=== PATIENT | male | born 1955 | race Caucasian/White ===

== ENCOUNTER → 2020-06-13 02:47 | Outpatient (CLI) | payer OTHER, SELFPAY ==
[2020-06-13 19:42] LABS: SARS-CoV-2 RNA PCR Negative
== END ==
PROVIDERS: PCP Internal Medicine; Visit Provider Internal Medicine Cardiovascular Disease
DX: Z01.812 Encounter for preprocedural laboratory examination (principal); Z20.822 Contact with and (suspected) exposure to COVID-19
CPT/HCPCS: C9803; U0003; U0005

== ENCOUNTER 2020-06-16 02:01 | Day surgery (SDC) | payer OTHER, SELFPAY ==
[2020-06-15 11:37] VITALS: BMI 44.2
[2020-06-16] VITALS (7 sets, daily range): BP systolic 113–136; BP diastolic 75–87; PULSE 72–104; RESP 18–35; TEMP 36.4–36.8; O2SAT 93–98; BMI 45.0
--- NOTE | 2020-06-16 10:00 | ECG_ITS ---
Measurements Intervals [place] Rate: 103 P: [place]: 0 QRS: 3 QRSD: 117 T: 72 QT: 370 QTc: 486 Interpretive Statements ATRIAL FLUTTER/TACHYCARDIA WITH RAPID VENTRICULAR RESPONSE VENTRICULAR PREMATURE COMPLEX INTRAVENTRICULAR CONDUCTION DELAY DELAYED PRECORDIAL R/S TRANSITION BORDERLINE ST-T WAVE ABNORMALITY- HIGH LATERAL LEADS ABNORMAL ECG Electronically Signed On 06-16-2020 10:37:25 RECONSTRUCTIVE DENTIST by Ramin Stanton D.O.
--- NOTE | 2020-06-16 10:42 | WPDHPUPDATE1 ---
History and Physical Update Update Date/Time: 06/16/20 10:42 Patient with recent onset of atrial flutter, persistent, and some MARTE. He has been started on amiodarone but the atrial flutter persists and he is here for elective electrical cardioversion with the assistance of anesthesia. He has history of a dilated cardiomyopathy, sustained ventricular tachycardia requiring ICD implant several years ago with some recent ventricular tachycardia treated with anti tachy pacing. He has been anticoagulated with Xarelto for at least 6 weeks and has not missed any doses. History and Physical has been reviewed, including an updated exam of the patient. There are NO changes in the patient's condition. Risks, benefits, and alternatives have been discussed and questions answered. Patient agrees to proceed with procedure.
--- NOTE | 2020-06-16 10:45 | WPDMODSED ---
Moderate Sedation Note-Pt Data Patient Data Diagnosis: Persistent atrial flutter Present Complaint: History of cardiomyopathy, ventricular tachycardia, ICD who developed persistent atrial flutter/fib noted in April. On anticoagulation and here for elective electrical cardioversion. Procedure to be performed/Plan: Elective electrical cardioversion with the assistance of anesthesia. Allergies Allergy/AdvReac Type Severity Reaction Status Date / Time No Known Allergies Allergy Verified 06/15/20 11:26 Home Medications Medication Instructions Recorded Confirmed Type allopurinol 300 mg PO DAILY 06/15/20 06/15/20 History amiodarone 200 mg PO BID 06/15/20 06/16/20 History amlodipine 10 mg PO DAILY 06/15/20 06/15/20 History aspirin 81 mg PO DAILY 06/15/20 06/15/20 History atorvastatin 40 mg PO DAILY 06/15/20 06/15/20 History carvedilol 50 mg PO BID 06/15/20 06/16/20 History cetirizine [Zyrtec] 10 mg PO DAILY 06/15/20 06/15/20 History crisaborole [Eucrisa] 1 applic TOPICAL BID 06/15/20 06/15/20 History dulaglutide [Trulicity] 1.5 mg SUBCUT WEEKLY 06/15/20 06/15/20 History empagliflozin [Jardiance] 10 mg PO DAILY 06/15/20 06/15/20 History fluticasone propionate 50 mcg INTRANASAL BID 06/15/20 06/15/20 History lecithin 1,200 mg PO DAILY 06/15/20 06/15/20 History losartan-hydrochlorothiazide 1 tablet PO DAILY 06/15/20 06/15/20 History metformin 1,000 mg PO DAILY 06/15/20 06/15/20 History methimazole 5 mg PO DAILY 06/15/20 06/15/20 History omega-3 fatty acids [[place] 3] 1,000 mg PO DAILY 06/15/20 06/15/20 History rivaroxaban [Xarelto] 20 mg PO DAILY 06/15/20 06/15/20 History vitamin B complex 1 cap PO DAILY 06/15/20 06/15/20 History vitamin E 400 unit PO DAILY 06/15/20 06/15/20 History Current Medications: Active Medications Sodium Chloride (Normal Saline Iv) 1,000 mls @ 30 mls/hr IV CONT .Q24H [facility] Sedation/Anesthesia: No previous sedation/anesthesia problems (including family history). [facility] Past Medical History Medical History (Updated 06/16/20 @ 10:48 by Megan Armas MD) Atrial flutter Diabetes Dilated cardiomyopathy Hyperlipidemia associated with type 2 diabetes mellitus Hypertension ICD (implantable cardioverter-defibrillator) battery depletion Biotronik ICD [place] [address] Forrester for sustained ventricular tachycardia. Kidney stone Morbid obesity Sleep apnea Ventricular tachycardia Surgical History Surgical History (Updated 06/16/20 @ 10:48 by Megan Armas MD) H/O shoulder surgery Family History Family History (Updated 06/16/20 @ 10:49 by Megan Armas MD) Father Heart disease heart attack, age 63 Mother Heart disease Cerebrovascular accident Social History Social History Smoking status: Never smoker Alcohol intake: current Drinks per week: 4 Alcohol use details: social wine drinker Substance use: never Living arrangements: with family Mod Sed Physical Exam Physical Exam Pre Procedural Exam: Normal: Appearance, Eyes, Ears, Nose, Neck, Throat, Airway, Lungs, Heart Size, Neuro Exam, Abdomen (Obese), Breasts, Extremities (Trace edema) and Skin and Variation: Heart Rate (Mildly tachycardic) and Heart Rhythm Hours since solid foods: 12 Hours since liquid intake: 12 Internal Medicine - PN: Obj Da Vital Signs Vital Signs: Vital Signs - 24 hr 06/16/20 10:35 Temperature 97.5 F L Pulse Rate 104 H Respiratory Rate 18 Blood Pressure 131/87 Pulse Oximetry 98 Meds/Results Medications: Active Medications Generic Name Dose Route Start Last Admin Trade Name Freq PRN Reason Stop Dose Admin Sodium Chloride 1,000 mls @ 30 mls/hr 06/16/20 10:00 Normal Saline Iv IV CONT .Q24H [facility] EKG shows atrial flutter rate 103, PVCs Labs CBC & Chem 7: 06/16/20 10:27 ASA Classification/Sedation ASA Classification/Sedation ASA Class: III Risks: Risks, benefits and alternatives explained and patient/family accepted p
[2020-06-16 10:57] LABS: Anion Gap 10 mmol/L (8-16); Blood Urea Nitrogen 29 mg/dL (9-20); Calcium 9.3 mg/dL (8.4-10.2); Carbon Dioxide 28 mmol/L (22-30); Chloride 104 mmol/L (98-107); Estimated CRCL calculation 73 ml/min; Estimated Glomerular Filt Rate 56; Glucose 168 mg/dL (75-110); Magnesium 1.6 mg/dL (1.6-2.3); Sodium 142 mmol/L (137-145)
--- NOTE | 2020-06-16 11:14 | WPDANESEPPF ---
Anes - Initial Pre Proc Eval Procedure: Operation Date: 06/16/20 11:30 Proposed Procedures p Electrical Cardioversion - Megan Armas MD Date/Time: 06/16/20 11:14 Surgeon: Megan Armas MD Pre Op Diagnosis: A-Fib Patient Data Age: 64 Gender: M Height: 5 ft 10 in Weight: 142.4 kg Last Vital Signs Temp 97.5 F L 06/16/20 10:35 Pulse 104 H 06/16/20 10:35 Resp 18 06/16/20 10:35 BP 131/87 06/16/20 10:35 Pulse Ox 98 06/16/20 10:35 Allergies Allergy/AdvReac Type Severity Reaction Status Date / Time No Known Allergies Allergy Verified 06/15/20 11:26 Home Medications Medication Instructions Recorded Confirmed Type allopurinol 300 mg PO DAILY 06/15/20 06/15/20 History amiodarone 200 mg PO BID 06/15/20 06/16/20 History amlodipine 10 mg PO DAILY 06/15/20 06/15/20 History aspirin 81 mg PO DAILY 06/15/20 06/15/20 History atorvastatin 40 mg PO DAILY 06/15/20 06/15/20 History carvedilol 50 mg PO BID 06/15/20 06/16/20 History cetirizine [Zyrtec] 10 mg PO DAILY 06/15/20 06/15/20 History crisaborole [Eucrisa] 1 applic TOPICAL BID 06/15/20 06/15/20 History dulaglutide [Trulicity] 1.5 mg SUBCUT WEEKLY 06/15/20 06/15/20 History empagliflozin [Jardiance] 10 mg PO DAILY 06/15/20 06/15/20 History fluticasone propionate 50 mcg INTRANASAL BID 06/15/20 06/15/20 History lecithin 1,200 mg PO DAILY 06/15/20 06/15/20 History losartan-hydrochlorothiazide 1 tablet PO DAILY 06/15/20 06/15/20 History metformin 1,000 mg PO DAILY 06/15/20 06/15/20 History methimazole 5 mg PO DAILY 06/15/20 06/15/20 History omega-3 fatty acids [[place] 3] 1,000 mg PO DAILY 06/15/20 06/15/20 History rivaroxaban [Xarelto] 20 mg PO DAILY 06/15/20 06/15/20 History vitamin B complex 1 cap PO DAILY 06/15/20 06/15/20 History vitamin E 400 unit PO DAILY 06/15/20 06/15/20 History Laboratory Tests 06/16/20 10:27 Sodium 142 mmol/L mmol/L (137-145) Potassium 4.0 mmol/L mmol/L (3.4-5.0) Chloride 104 mmol/L mmol/L (98-107) Carbon Dioxide 28 mmol/L mmol/L (22-30) Anion Gap 10 mmol/L mmol/L (8-16) BUN 29 mg/dL H mg/dL (9-20) Creatinine 1.30 mg/dL mg/dL (0.7-1.3) Estim Creat Clear Calc 73 ml/min ml/min Estimated GFR 56 L (59 - ) Glucose 168 mg/dL H mg/dL (75-110) Calcium 9.3 mg/dL mg/dL (8.4-10.2) Magnesium 1.6 mg/dL mg/dL (1.6-2.3) Patient hx anesthesia problems: none Family hx anesthesia problems: none PMFSH Past Medical History Medical History (Updated 06/16/20 @ 10:48 by Megan Armas MD) Atrial flutter Diabetes Dilated cardiomyopathy Hyperlipidemia associated with type 2 diabetes mellitus Hypertension ICD (implantable cardioverter-defibrillator) battery depletion Biotronik ICD [place] [address] Forrester for sustained ventricular tachycardia. Kidney stone Morbid obesity Sleep apnea Ventricular tachycardia Surgical History Surgical History (Updated 06/16/20 @ 10:48 by Megan Armas MD) H/O shoulder surgery Family History Family History (Updated 06/16/20 @ 10:50 by Megan Armas MD) Father Heart disease heart attack, age 63 Mother Heart disease Cerebrovascular accident Social History Social History Smoking status: Never smoker Alcohol intake: current Drinks per week: 4 Alcohol use details: social wine drinker Substance use: never Living arrangements: with family Breana De La Rosa Final PreProcedure Day of Procedure 06/16/20 11:14 Patient weight: morbidly obese Heart: irregular rhythm Lungs: clear to auscultation Airway: Mallampati scale class III Neurological: alert and oriented Last oral intake: >/= 8 hours ASA classification: IV Emergent: no Anesthetic plan: proceed Anesthesia type and monitoring: general GIVS and standard monitoring Informed Consent: The patient's anesthetic plan and its attendant risks and benefits were discussed with the patient/family/POA. Questions we
--- NOTE | 2020-06-16 11:43 | ECG_ITS ---
Measurements Intervals [place] Rate: 75 P: 42 [place]: 171 QRS: 44 QRSD: 118 T: 61 QT: 394 QTc: 440 Interpretive Statements SINUS RHYTHM INTRAVENTRICULAR CONDUCTION DELAY BORDERLINE ECG Electronically Signed On 06-16-2020 12:10:36 QUARTER SEAMER by Ramin Stanton D.O.
--- NOTE | 2020-06-16 11:54 | PM.OP ---
Procedure Note - Brief Procedure Note - Brief Date of procedure: 06/16/20 Pre-op diagnosis: A-Fib Atrial flutter Post-op diagnosis: other Procedure performed: Sedation with anesthesia Elective electrical cardioversion Description of procedure: Status post elective electrical cardioversion with 70 joules of synchronized biphasic energy Surgeon: Megan Armas MD Complications: No immediate complications Findings: Successful electrical cardioversion
--- NOTE | 2020-06-16 11:55 | P.OP_ITS ---
Procedure Note - Detailed Date of procedure: 06/16/20 Pre-op diagnosis: A-Fib Atrial flutter Post-op diagnosis: same Procedure performed: Sedation with anesthesia Elective electrical cardioversion Description of procedure: Sedation: See Anesthesia flow sheet Cardioversion: The ICD was interrogated and confirmed atrial flutter. After informed consent and sedation with assistance of anesthesia, the patient underw ent elective electrical synchronized cardioversion with 70 joules of biphasic energy and converted to normal sinus rhythm. There were no complications. Anesthesia: MAC Surgeon: Megan Armas MD Drains: No Packing: No Complications: No immediate complications Condition: stable Disposition: same day Findings: Continue amiodarone 200 mg daily. Will decide at a later date whether to discontinue this or not. Another option may be atrial flutter ablation if his atrial flutter returns. Follow-up in the office as scheduled
--- NOTE | 2020-06-16 13:25 | SUR.PHASEII ---
Patient given discharge instructions with emphasis on medication regimen, when to notify the docotor, and follow up care. Patient verbalizes understanding. PIV removed. VSS. Patient ambulated to car with staff, where he was picked up by his .
== END 2020-06-16 13:25 | disposition home or self-care (01) ==
PROVIDERS: PCP Internal Medicine; Visit Provider Internal Medicine Cardiovascular Disease
PROC: 5A2204Z Restoration of Cardiac Rhythm, Single (ICD-10-PCS; principal; 2020-06-16 11:30)
DX: I48.19 Other persistent atrial fibrillation (principal); I48.92 Unspecified atrial flutter; I42.0 Dilated cardiomyopathy; I47.2 Ventricular tachycardia; E11.9 Type 2 diabetes mellitus without complications; E78.5 Hyperlipidemia, unspecified; I10 Essential (primary) hypertension; G47.30 Sleep apnea, unspecified; Z95.810 Presence of automatic (implantable) cardiac defibrillator; E66.01 Morbid (severe) obesity due to excess calories; Z68.42 Body mass index [BMI] 45.0-49.9, adult; Z79.84 Long term (current) use of oral hypoglycemic drugs; Z79.82 Long term (current) use of aspirin; Z79.01 Long term (current) use of anticoagulants
CPT/HCPCS: 36415; 80048; 83735; 92960; 93005; C9803; J7040; U0003; U0005

== ENCOUNTER 2020-06-25 11:50 | Emergency (ER) | payer OTHER, SELFPAY ==
[2020-06-25 11:57] VITALS: BP 133/91; PULSE 70; RESP 16; TEMP 36.7; O2SAT 98
--- NOTE | 2020-06-25 12:38 | ED.WOUNDLAC ---
HPI - Wound/Laceration General Chief Complaint: Wound/Laceration Stated Complaint: wound on elbow Time Seen by Provider: 06/25/20 12:35 Source: patient and RN notes reviewed Mode of arrival: ambulatory Limitations: no limitations History of Present Illness HPI narrative: 64-year-old male with history of diabetes presents concern for a wound is not healing. Reports he had an abrasion to his left elbow. Reports the wound has failed to heal. Reports he has been using triple antibiotic ointment and adhesive bandages. Reports the wound bed is red and has yellow drainage. Reports it is mildly tender. He denies any surrounding redness, swelling, pain. Denies any distal redness, swelling, decreased sensation, range of motion. Related Data Home Medications Medication Instructions Recorded Confirmed Eucrisa 1 applic TOPICAL BID 06/15/20 06/15/20 Jardiance 10 mg PO DAILY 06/15/20 06/25/20 Trulicity 1.5 mg SUBCUT WEEKLY 06/15/20 06/25/20 Xarelto 20 mg PO DAILY 06/15/20 06/25/20 allopurinol 300 mg PO DAILY 06/15/20 06/25/20 amlodipine 10 mg PO DAILY 06/15/20 06/25/20 aspirin 81 mg PO DAILY 06/15/20 06/25/20 atorvastatin 40 mg PO DAILY 06/15/20 06/25/20 carvedilol 50 mg PO BID 06/15/20 06/25/20 cetirizine [Zyrtec] 10 mg PO DAILY 06/15/20 06/25/20 fluticasone propionate 50 mcg INTRANASAL BID 06/15/20 06/25/20 lecithin 1,200 mg PO DAILY 06/15/20 06/25/20 losartan-hydrochlorothiazide 1 tablet PO DAILY 06/15/20 06/25/20 metformin 1,000 mg PO DAILY 06/15/20 06/25/20 methimazole 5 mg PO DAILY 06/15/20 06/25/20 omega-3 fatty acids 1,000 mg PO DAILY 06/15/20 06/25/20 vitamin B complex 1 cap PO DAILY 06/15/20 06/25/20 vitamin E 400 unit PO DAILY 06/15/20 06/25/20 Allergies Allergy/AdvReac Type Severity Reaction Status Date / Time No Known Allergies Allergy Verified 06/25/20 11:57 Review of Systems Review of Systems: Narrative: CONSTITUTIONAL: Denies malaise, chills, sweats, or fever. CARDIOVASCULAR: Denies chest pain, palpitations, or edema. RESPIRATORY: Denies cough or dyspnea. SKIN: Reports wound on the left elbow that is nonhealing MUSCULOSKELETAL: Denies musculoskeletal pain or myalgia. All systems reviewed & are unremarkable except as noted in HPI and below PMFSH Past Medical History Medical History (Updated 06/25/20 @ 12:42 by Eloina Angulo NP) Atrial flutter Diabetes Dilated cardiomyopathy Hyperlipidemia associated with type 2 diabetes mellitus Hypertension ICD (implantable cardioverter-defibrillator) battery depletion Biotronik ICD [place] [address] Forrester for sustained ventricular tachycardia. Kidney stone Morbid obesity Sleep apnea Ventricular tachycardia Surgical History Surgical History (Updated 06/16/20 @ 10:48 by Megan Armas MD) H/O shoulder surgery Family History Family History (Updated 06/16/20 @ 10:50 by Megan Armas MD) Father Heart disease heart attack, age 63 Mother Heart disease Cerebrovascular accident Social History Social History Smoking status: Never smoker Alcohol intake: current Drinks per week: 4 Substance use: never Comments At time of signature, agree with nursing past medical, surgical, social and family history. There is no relevant family history pertinent to the presenting complaint Exam Narrative: Exam Narrative: GENERAL: Well-appearing, well-nourished, and in no acute distress. HEAD: Normocephalic, atraumatic. EYES: PERRLA, conjunctivae clear ENT: Mucous membranes moist. NECK: Supple. CHEST: No respiratory distress. Speaks in full sentences. HEART: Regular rate and rhythm. EXTREMITIES: Left upper extremity has grossly normal range of motion, no edema, grossly normal strength and sensation. SKIN: Warm, dry. 6 cm in diameter wound with beefy red tissue bed and serosanguineous drainage noted to the elbow surrounded by red satellite papules. No erythema, induration, edema surrounding the wound, no purulent drainage n
== END 2020-06-25 12:52 | disposition home or self-care (01) ==
PROVIDERS: Emergency Provider Nurse Practitioner; PCP Internal Medicine
DX: L08.9 Local infection of the skin and subcutaneous tissue, unspecified (principal); S51.002A Unspecified open wound of left elbow, initial encounter; X58.XXXA Exposure to other specified factors, initial encounter; I48.92 Unspecified atrial flutter; E11.9 Type 2 diabetes mellitus without complications; I42.0 Dilated cardiomyopathy; E78.5 Hyperlipidemia, unspecified; I10 Essential (primary) hypertension; Z95.810 Presence of automatic (implantable) cardiac defibrillator; G47.30 Sleep apnea, unspecified; E66.01 Morbid (severe) obesity due to excess calories; Z68.41 Body mass index [BMI] 40.0-44.9, adult
CPT/HCPCS: 99213; G0463

== ENCOUNTER 2020-10-21 09:12 | Inpatient (IN) | payer OTHER, MEDICARE, SELFPAY ==
[2020-10-21] VITALS (27 sets, daily range): BP systolic 104–135; BP diastolic 63–93; PULSE 78–181; RESP 14–36; TEMP 36.2–36.9; O2SAT 88–100; BMI 43.2
--- NOTE | ~2020-10-21 | CT_ITS ---
EXAMINATION: CT abdomen pelvis w con EXAM DATE: 10/21/2020 11:19 INDICATION: LLQ pain, hx of kidney stones and diverticulitis. TECHNIQUE: Spiral CT of the abdomen and pelvis was performed following intravenous injection of 100 m L Omnipaque 350. Axial, coronal and sagittal images of the abdomen and pelvis were reviewed. The do se-length product (DLP) for this examination was 1450.68 mGy-cm. The exposure was tailored according to patient size (auto mA exposure control), and iterative reconstruction (ASIR) was used as addition al dose reduction technique. Comparison is made to prior examination from 06/18/2015. FINDINGS: The liver, spleen, adrenal glands and pancreas are unremarkable. Gallbladder is unremarkab le. No biliary obstruction. Portal and splenic veins are patent. Kidneys enhance symmetrically. T here is no hydronephrosis. Right kidney nonobstructing calyceal stone measuring 7 mm. The prostate i s unremarkable. The bladder is unremarkable. There is no retroperitoneal or pelvic lymphadenopathy. There is mild scattered arteriosclerotic disease. There is small right inguinal fat-containing her court. There is extensive sigmoid, moderate descending colonic diverticulosis. There is moderate amount of p erisigmoid inflammation, and small pocket of fluid and gas adjacent to this region without an organiz ed wall, region measuring 2 x 3 cm, small peridiverticular abscess. No gross free intraperitoneal air . There is a fistulous tract between the sigmoid colon and the superior aspect of the bladder, probab ly from prior episode of diverticulitis. This may not be patent, but correlate with urinalysis. There are no findings to suggest appendicitis. The stomach and small bowel are unremarkable. There is expected amount of colonic stool. Cardiac pacemaker/AICD lead. The lung bases are unremarkable. There are no osteoblastic or osteolytic lesions identified. IMPRESSION: 1. Sigmoid diverticulitis with small peridiverticular fluid/gas collection without organized wall, a n early peridiverticular abscess. 2. Evidence of sigmoid-bladder fistula, could be from prior episode diverticulitis. Correlate with u rinalysis to exclude open communication. 3. Nonobstructing right calyceal stone. Reviewed, dictated and finalized at location B. IMPRESSION: 1. Sigmoid diverticulitis with small peridiverticular fluid/gas collection wit hout organized wall, an early peridiverticular abscess. 2. Evidence of sigmoid-bladder fistula, could be from prior episode diverticul itis. Correlate with urinalysis to exclude open communication. 3. Nonobstructing right calyceal stone.
--- NOTE | 2020-10-21 09:51 | ED.ABDPAIN ---
HPI - Abdominal Pain General Chief Complaint: Abdominal Pain Stated Complaint: LLQ abd pain Time Seen by Provider: 10/21/20 09:24 Source: patient Mode of arrival: ambulatory Limitations: no limitations History of Present Illness HPI narrative: Patient is a 65-year-old male who presents complaining of left sided abdominal pain x2 days. He reports pain increasing this am. He reports pain with palpation. He denies nausea, vomiting and diarrhea. He reports urinary frequency and difficulty urinating x 1 day. Patient reports a history of diverticulitis and kidney stones in the past. He denies taking over the counter medications for pain relief prior to arrival. MD elicited complaint: abdominal pain Related Data Home Medications Medication Instructions Recorded Confirmed Eucrisa 1 applic TOPICAL BID 06/15/20 06/15/20 Jardiance 10 mg PO DAILY 06/15/20 06/25/20 Trulicity 1.5 mg SUBCUT WEEKLY 06/15/20 06/25/20 Xarelto 20 mg PO DAILY 06/15/20 06/25/20 allopurinol 300 mg PO DAILY 06/15/20 06/25/20 amlodipine 10 mg PO DAILY 06/15/20 06/25/20 aspirin 81 mg PO DAILY 06/15/20 06/25/20 atorvastatin 40 mg PO DAILY 06/15/20 06/25/20 carvedilol 50 mg PO BID 06/15/20 06/25/20 cetirizine [Zyrtec] 10 mg PO DAILY 06/15/20 06/25/20 fluticasone propionate 50 mcg INTRANASAL BID 06/15/20 06/25/20 lecithin 1,200 mg PO DAILY 06/15/20 06/25/20 losartan-hydrochlorothiazide 1 tablet PO DAILY 06/15/20 06/25/20 metformin 1,000 mg PO BID 06/15/20 06/25/20 methimazole 5 mg PO EVERY OTHER DAY 06/15/20 06/25/20 omega-3 fatty acids 1,000 mg PO DAILY 06/15/20 06/25/20 vitamin B complex 1 cap PO DAILY 06/15/20 06/25/20 vitamin E 400 unit PO DAILY 06/15/20 06/25/20 Allergies Allergy/AdvReac Type Severity Reaction Status Date / Time No Known Allergies Allergy Verified 10/21/20 09:20 Review of Systems Review of Systems: Narrative: CONSTITUTIONAL: Denies fever, chills, or sweats. EYES: Denies visual changes, redness, or discharge. ENT: Denies rhinorrhea, congestion, sore throat, or otalgia. CARDIOVASCULAR: Denies chest pain, palpitations, or edema. RESPIRATORY: Denies cough or dyspnea. GASTROINTESTINAL: Reports left-sided abdominal pain, denies nausea, vomiting, or diarrhea. GENITOURINARY: Reports urinary frequency and difficulty with urination. SKIN: Denies rash or itching. MUSCULOSKELETAL: Denies back pain, joint pain, or myalgia. NEUROLOGIC: Denies headache, numbness, dizziness, or weakness. PSYCHIATRIC: Denies anxiety or depression. [facility] Past Medical History Medical History (Updated 06/26/20 @ 00:00 by [facility]) Atrial flutter Diabetes Dilated cardiomyopathy Hyperlipidemia associated with type 2 diabetes mellitus Hypertension ICD (implantable cardioverter-defibrillator) battery depletion Biotronik ICD [place] [address] Forrester for sustained ventricular tachycardia. Kidney stone Morbid obesity Sleep apnea Ventricular tachycardia Surgical History Surgical History (Updated 06/16/20 @ 10:48 by Megan Armas MD) H/O shoulder surgery Family History Family History (Updated 06/16/20 @ 10:50 by Megan Armas MD) Father Heart disease heart attack, age 63 Mother Heart disease Cerebrovascular accident Social History Social History Smoking status: Never smoker Alcohol intake: current Drinks per week: 4 Alcohol use details: social wine drinker Substance use: never Exam Narrative: Exam Narrative: GENERAL: Well-appearing, well-nourished, and in no acute distress. HEAD: Normocephalic, atraumatic. EYES: EOMI. No redness or drainage. Conjunctiva are normal. ENT: Mucous membranes pink and moist. CHEST: No respiratory distress. Clear to auscultation. HEART: Regular rate and rhythm. No murmur appreciated. Normal peripheral pulses. GI: Left-sided tenderness with palpation, no rebound or guarding. No distention. Bowel sounds normal in all quadrants. MUSCULOSKELETAL: No bony tende
[2020-10-21 10:08] LABS: Basophils Percent Auto 0.2 % (0.2-1.2); Eosinophils Percent Auto 0.3 % (0-4.4); Hematocrit 44.5 % (42.0-52.0); Immature Granulocyte Absolute 0.04 K/mm3 (0.00-0.031); Immature Granulocyte Percent A 0.4 % (0-0.5); Lymphocytes Absolute Auto 1.09 K/mm3 (0.9-3.2); Lymphocytes Percent Auto 9.9 % (18.3-44.2); Mean Corpuscular HGB Conc 33.7 g/dl (32-36); Mean Corpuscular Hemoglobin 32.8 pg (26-34); Mean Corpuscular Volume 97.4 fl (80-100); Mean Platelet Volume 10.3 fl (7.4-10.4); Monocytes Percent Auto 8.9 % (2.6-8.5); Neutrophils Absolute Auto 8.9 K/mm3 (1.3-6.7); Neutrophils Percent Auto 80.3 % (45.5-73.1); Platelet Count Result 160 k/mm3 (150-375); Red Blood Count 4.57 M/mm3 (4.6-6.20)
[2020-10-21 10:12] LABS: Add Urine Microscopic? YES; Appearance Urine Clear (Clear); Bilirubin Urine Negative (Negative); Blood Urine 1+ (Negative); Color Urine Yellow (Yellow); Glucose Urine UA 3+ mg/dL (Negative); Ketones Urine Negative (Negative); Leukocyte Esterase Ur Negative LEU/UL (Negative); Mucus Urine Rare /lpf; Nitrate Urine Negative (Negative); Protein Urine 2+ mg/dL (Negative); RBC Urine 0-2 /hpf (0-2); Specific Grav Ur 1.025 (1.001-1.035); Squamous Epithelial Cell Urine Rare /hpf (Few); Urobilinogen Urine Negative mg/dL (<2.0); WBC Urine 0-3 /hpf
[2020-10-21 10:24] LABS: Alanine Aminotransferase 43 U/L (4-50); Albumin Level 4.6 g/dL (3.5-5.1); Alkaline Phosphatase 61 U/L (38-126); Anion Gap 10 mmol/L (8-16); Aspartate Amino Transferase 42 U/L (17-59); Bilirubin,Total 2.7 mg/dL (0.2-1.3); Blood Urea Nitrogen 24 mg/dL (9-20); Calcium 9.4 mg/dL (8.4-10.2); Carbon Dioxide 25 mmol/L (22-30); Chloride 105 mmol/L (98-107); Estimated CRCL calculation 71 ml/min; Estimated Glomerular Filt Rate 55; Glucose 160 mg/dL (75-110); Lipase 363 U/L (23-300); Potassium 3.7 mmol/L (3.4-5.0); Sodium 140 mmol/L (137-145)
[2020-10-21 10:35] LABS: Troponin I 0.013 ng/mL (0.000-0.034)
--- NOTE | 2020-10-21 14:04 | PM.CNGS ---
Assessment and Plan Assessment and plan (1) Acute diverticulitis: Code(s): K57.92 - Diverticulitis of intestine, part unspecified, without perforation or abscess without bleeding Status: Acute Assessment and Plan: This is the reason for our consultation. CT scan reviewed and discussed with the patient in detail. There is evidence of acute sigmoid diverticulitis with possible early peridiverticular abscess formation. There is mention of possible enterovesicular fistula on the CT scan, but clinically he does not correlate with an open connection from the sigmoid to the bladder. Urinalysis is negative and he denies any urinary complaints or pneumaturia. We would recommend to continue broad-spectrum IV antibiotics, bowel rest, IV fluids, and analgesics as needed. No indication for surgical intervention or percutaneous drainage at this time. Continue to monitor with serial abdominal exams and labs. He will eventually need a colonoscopy about 4-6 weeks after this acute episode resolves. Thank you for allowing us to see the patient in consultation and we will continue to follow along with you. (2) Atrial flutter: Code(s): I48.92 - Unspecified atrial flutter Status: Acute Assessment and Plan: Hx of symptomatic ventricular tachycardia in 2013 and also atrial flutter with elective electrical cardioversion in June 2020. Currently on Xarelto. (3) Anticoagulated by anticoagulation treatment: Code(s): Z79.01 - intermediate manager (current) use of anticoagulants Status: Acute Assessment and Plan: Hold Xarelto for now and monitor in case of need for intervention, although unexpected at this time. (4) Dilated cardiomyopathy: Code(s): I42.0 - Dilated cardiomyopathy Status: Acute (5) Obesity, morbid, BMI 40.0-49.9: Code(s): E66.01 - Morbid (severe) obesity due to excess calories Status: Acute (6) Diabetes: Code(s): E11.9 - Type 2 diabetes mellitus without complications Status: Chronic Assessment and Plan: Management per Hospitalist. (7) Sleep apnea: Code(s): G47.30 - Sleep apnea, unspecified Status: Acute Assessment and Plan: Compliant with CPAP. Continue use while inpatient. Additional Plan I have discussed the patient's case and plan of care with Dr. Johnson. History of Present Illness Consult details Consult date: 10/21/20 Reason for consult: other (Acute diverticulitis with possible abscess) Requesting physician: Anita Whitehead FNP Narrative: This is a 65-year-old obese male who presented to the ER with complaints of LLQ abdominal pain. He has a history of unstable ventricular tachycardia and atrial flutter on anticoagulation, diabetes mellitus type 2, FINN, and HTN. He reports having one episode of diverticulitis that was treated with outpatient oral antibiotics in his 20's and not having any issues since. He reports this episode was different than his previous symptoms. He reports an onset of LLQ abdominal pain yesterday morning that was mild and progressively worsened throughout the day and through the night. This was aggravated by movement and bending. The pain radiated to his left groin. He reports having some relief of pain after voiding in the night. Denies fever, chills, nausea, or vomiting. Due to the unrelenting pain this morning, he went to an [facility]. He was directed to the ER for further evaluation while in the waiting room at the urgent care. CT scan of the abdomen and pelvis showed sigmoid diverticulitis with small peridiverticular fluid/gas collection without organized wall, a possible early peridiverticular abscess. CT also suggests possible sigmoid-bladder fistula. Nonobstructing right calyceal stone. Labs showed a white blood cell count of 11,000. Urinalysis unremarkable and does not correlate with an enterovesicle fistula. Patient denies pneumaturia, dysuria, hematuria, or other urinary complaints. The patient will be admitted
--- NOTE | 2020-10-21 14:34 | PM.IMHP ---
H&P: HPI History of Present Illness Date/Time: 10/21/20 14:34Thizulay is a 65-year-old male patient who has a past medical history of having diverticulosis with diverticulitis in the past. The patient stated that his last episode was in 1991 The patient came to the emergency room complaining of left sided abdominal pain for the last 2 days. The pain has been increasing since this morning. It hurts with palpation and ambulation. He has no nausea vomiting or diarrhea. The patient has been having difficulty urinating for the last day. The patient stated that his abdomen feels distended. He has had a past history of having kidney stones in the past as well. The patient is afebrile. As per CT of the abdomen he has sigmoid diverticulitis with small periventricular fluid/ gas collection without organized wall, in early Jennifer diverticular abscess. ED provider did call surgery to consult as well. The patient was given morphine, Tylenol and Zofran. The patient was also started on Zosyn. His white count is noted to be 11.0. The patient is being admitted to inpatient services on the date of service of 10/21/2020. Chief Complaint: Abdominal pain Review of Systems Review of Systems: All systems reviewed & are unremarkable except as noted in HPI and below Constitutional: Constitutional: Reports as per HPI and Reports no additional constitutional complaints Eyes: Eyes: Reports as per HPI and Reports no additional eye complaints ENT: Reports system reviewed and no additional complaints, except as documented and Reports Normal hearing present Cardiovascular: Cardiovascular: Reports no additional cardiovascular complaints Respiratory: Respiratory: Reports no additional respiratory complaints and Reports no additional respiratory complaints Gastrointestinal: Gastrointestinal: Reports as per HPI and Reports no additional gastrointestinal complaints Musculoskeletal: Musculoskeletal: Reports no additional musculoskeletal complaints Integumentary/Breasts: Skin/Breast: Reports system reviewed and no additional complaints, except as docu and Reports as per HPI Neurologic: Reports system reviewed and no additional complaints, except as documented, Reports as per HPI and Reports Normal hearing present Psychiatric: Psychiatric: Reports no additional psychiatric complaints and Reports as per HPI Endocrine: Endocrine: Reports no additional endocrine complaints Hematologic/Lymphatic: Hematologic/Lymphatic: Reports no additional hematologic/lymphatic complaints Allergic/Immunologic: Allergic/Immunologic: Reports no additional allergic/immunologic complaints [facility] Past Medical History Medical History (Updated 10/21/20 @ 15:12 by Breanne Jackman NP) Atrial flutter With cardioversion Diabetes Dilated cardiomyopathy Nonischemic cardiomyopathy History of atrial flutter Elective electrical cardioversion in June 2020. On oral anticoagulation. Hyperlipidemia associated with type 2 diabetes mellitus Hypertension ICD (implantable cardioverter-defibrillator) battery depletion [employer] ICD [place] [address] Forrester for secondary prevention of hemodynamically unstable ventricular tachycardia in the setting of nonischemic cardiomyopathy. Kidney stone Morbid obesity Sleep apnea Compliant with CPAP Ventricular tachycardia 2013 Surgical History Surgical History (Updated 10/21/20 @ 14:40 by Breanen Jackman NP) H/O hernia repair bilateral inguinal H/O shoulder surgery History of appendectomy Open appendectomy History of cardiac catheterization 2013 when admitted with unstable SVT. No findings of ischemic disease on cardiac cath, but found to have EF 33-40%. History of colonoscopy Reportedly normal colonoscopy over 10 years ago. History of inguinal hernia repair, bilateral x 2 in his 20's S/P rotator cuff repair Status post lateral meniscus repair Family History Family History Fat
--- NOTE | 2020-10-21 15:37 | PC.NURSE ---
Pt being transported by tech. Admitted to floor, room 320. Zosyn infusion complete.
--- NOTE | 2020-10-21 15:45 | PC.NURSE ---
This patient, Darnell Heath Jr., was admitted to 3 [facility] Surg Room 320-01. Patient/family oriented to hospital policies and general routines including ID bracelet, bed and alarms, visiting hours, pain management, procedures, bathroom and other care routines, personal items, smoking policy, room service/diet, and visiting hours. Report received from Malu MAYER. Information on how to activate the Rapid Response Team has been discussed. Patient/Family are encouraged to report perceived risks to care and to ask questions if they do not understand what they are told or what they should do.
[2020-10-21] MEDS: SODIUM CHLORIDE 0.9% IV 1,000 ML 125 ML IV CONT ×2 (16:41→20:01)
[2020-10-21 17:24] LABS: Glucose Point of Care 135 mg/dl (65-105)
[2020-10-21 17:57] LABS: Lactic Acid Reflex 1.8 mmol/L (0.7-2.1)
--- NOTE | 2020-10-21 18:57 | ECG_ITS ---
Measurements Intervals [place] Rate: 112 P: [place]: 0 QRS: 54 QRSD: 117 T: 195 QT: 331 QTc: 453 Interpretive Statements ATRIAL FLUTTER/TACHYCARDIA WITH RAPID VENTRICULAR RESPONSE VENTRICULAR COUPLET INTRAVENTRICULAR CONDUCTION DELAY ST-T WAVE ABNORMALITY IN INFERIOR LEADS- CONSIDER ISCHEMIA ABNORMAL ECG Electronically Signed On 10-21-2020 19:56:55 CDT by Ramin Stanton D.O.
[2020-10-21] MEDS: METOPROLOL TARTRATE INJ 5 MG/5 ML VIAL 10 MG IV PUSH ×2 (18:58→19:12)
--- NOTE | 2020-10-21 19:22 | P.PNCROSS_ITS ---
Event Note Event Note Event Note: A rapid response was called. The patient stated he felt like he got shocked by his AICD. Patient's heart rate was anywhere from the 1 teens to 190- 200. I did consult Cardiology. The patient was given a dose of 10 mg of Lopressor and then a 5 mg of Lopressor IV push. Who is also given adenosine 6 mg without any effect. I was at the bedside during this procedure. The Lopressor and the adenosine only slow the heart rate down slightly. I did speak with Dr. pool in the hallway and she agreed that the patient needs to be on an amiodarone drip. electrolytes and magnesium are being ordered at this time. The patient is being to moved to ICU as IMU patient.
--- NOTE | 2020-10-21 19:23 | PC.NURSE ---
Pt was a rapid response from room 320. Pt brought to ICU room 1 via ICU charge nurse for rapid heart rate. Pt placed on monitor. HR 170s-180s. O2@4L applied. Breanne Jackman NP at pt's bedside. States that Dr. Armas was reviewing pt's EKG that was obtained while he was in room 320.
[2020-10-21] MEDS: AMIODARONE 150 MG/D5W 100 ML 150 MG/100 ML BAG 600 MG IV CONT ×2 (19:27→21:18)
--- NOTE | 2020-10-21 19:27 | PC.NURSE ---
Rapid response called on this pt. Pt stated something shocked him . This nurse placed pt on tele, and pt then went into SVT and at times Vtach. It was determined the pt had been shocked by his Defibrillator. Rapid response team arrived, to assist in pt care. Pacer pads were put on pt and meds were given per Dr orders. Pt was transferred to ICU 1.
[2020-10-21] MEDS: AMIODARONE 360 MG/D5W 200 ML 360 MG/200 ML BAG 33.33 MG IV CONT (19:39)
[2020-10-21] MEDS: RIVAROXABAN 20 MG TABLET PO (19:58)
[2020-10-21] MEDS: OMEGA 3 POLYUNSAT FATTY ACIDS 1 GM CAP 4 GM PO (19:58)
[2020-10-21] MEDS: ATORVASTATIN 40 MG TABLET PO (19:58)
[2020-10-21] MEDS: ASPIRIN 81 MG CHEWABLE TABLET PO (19:58)
[2020-10-21] MEDS: methiMAzole 5 MG TAB PO (19:59)
--- NOTE | 2020-10-21 20:02 | PM.CNCAR ---
Assessment and Plan Assessment and plan (1) Ventricular tachycardia: Code(s): I47.2 - Ventricular tachycardia Status: Inactive Assessment and Plan: Patient appears to be having nonsustained runs ( and probably a sustained run) of ventricular tachycardia which he has had before. Hemodynamically stable. He has been taking amiodarone 200 mg daily. Potassium this morning was 3.7 so will give more potassium and check potassium and magnesium levels. Recommend IV amiodarone bolus and drip. (2) Atrial flutter: Code(s): I48.92 - Unspecified atrial flutter Status: Acute Assessment and Plan: Recurrent atrial flutter with a by mildly elevated heart rate. Had cardioversion a few months ago. Takes Xarelto. Amiodarone infusion. (3) ICD (implantable cardioverter-defibrillator) in place: Code(s): Z95.810 - Presence of automatic (implantable) cardiac defibrillator Status: Acute Assessment and Plan: Probable ICD discharge today. Will interrogate tomorrow. (4) Dilated cardiomyopathy: Code(s): I42.0 - Dilated cardiomyopathy Status: Acute Assessment and Plan: EF runs 45-50%. Not in CHF (5) Diverticulitis: Code(s): K57.92 - Diverticulitis of intestine, part unspecified, without perforation or abscess without bleeding Status: Acute Assessment and Plan: Treatment per hospitalits and surgery. History of Present Illness History of Present Illness Consult date/time: 10/21/20 20:02 Requesting physician: Breanne Jackman NP Consult reason: Other ( Arrhythmia, ICD discharge) Reason For Visit: peridiverticular abscess Narrative: Darnell Heath is a 65-year-old white male who was asked to see at the request of LESTER Jackman for my advice and opinion regarding his a arrhythmias and ICD discharge. I follow Mr. Petersen in my office for his mild cardiomyopathy, ventricular tachycardia, ICD, and Paroxysmalatrial fibrillation and atrial flutter. he had left lower quadrant pain for day and was admitted to today for diverticulitis. He had taken his amiodarone this morning but some of the other medications have been missed because of his illness. Indication he was in the bathroom and felt and heard a loud pop Which apparently was his defibrillator firing. Telemetry shows it intermittent rapid heart rates In the 180s at times, often wide complex. He was given IV metoprolol without any improvement and also adenosine without improvement. he says he has felt not good but no particular problems with dizziness, presyncope, chest pain or shortness of breath. Mr. masha alcaraz was diagnosed as a mild nonischemic dilated cardiomyopathy in 2008. his EF runs about 45-50%. He had sustained ventricular tachycardia requiring admission in October 2013 and cardioversion. He had a ICD implant and has been on chronic amiodarone treatment. He had new onset of atrial fibrillation and atrial flutter in April 2020 status post cardioversion. He also has morbid obesity, sleep apnea on CPAP, diabetes, hypertension, and Parres fatty liver with chronic [place] mildly elevated liver enzymes. He is followed by at [facility] for his hyperlipidemia. Review of Systems Constitutional: Constitutional: Reports fatigue Eyes: Eyes: Reports no additional eye complaints ENT: Denies epistaxis Cardiovascular: Cardiovascular: Denies chest pain, Denies leg edema, Denies lightheadedness and Reports palpitations Respiratory: Respiratory: Denies hemoptysis, Denies dyspnea and Denies dyspnea on exertion Gastrointestinal: Gastrointestinal: Reports abdominal pain and Denies hematochezia Genitourinary: Genitourinary: Denies dysuria Musculoskeletal: Musculoskeletal: Reports back pain and Reports neck
[2020-10-21] MEDS: FLUTICASONE PROPIONATE 0.05% NA SPR 16 GM BTL (*BKC) 1 SPRAY NASAL (20:04)
[2020-10-21 20:56] LABS: Magnesium 1.7 mg/dL (1.6-2.3)
[2020-10-21 20:57] LABS: Anion Gap 10 mmol/L (8-16); Blood Urea Nitrogen 21 mg/dL (9-20); Calcium 9.2 mg/dL (8.4-10.2); Carbon Dioxide 26 mmol/L (22-30); Chloride 99 mmol/L (98-107); Estimated CRCL calculation 71 ml/min; Estimated Glomerular Filt Rate 55; Glucose 169 mg/dL (75-110); Potassium 3.5 mmol/L (3.4-5.0); Sodium 135 mmol/L (137-145)
[2020-10-21 21:11] LABS: Troponin I 0.053 ng/mL (0.000-0.034)
--- NOTE | 2020-10-21 21:20 | PC.NURSE ---
Dr. Armas called to ICU to check on pt's condition. Pt's HR 150s-180s, occassionally low 100s. Dr. Armas gave order for second amiodarone bolus and to then continue the amiodarone gtt at 1mg/min continuously. Dr. Armas also ordered an IV infusion of Potassium 40meq. Dr. Adan and Breanne Jackman TECHNICAL SERVICE ENGINEER in ICU at this time. Updated to pt condition. New orders for mag rider received from Dr. Adan.
[2020-10-21 22:17] LABS: Glucose Point of Care 145 mg/dl (65-105)
[2020-10-21] MEDS: MAGNESIUM SULF 2 GM/WATER 50ML 2 GM/50 ML BAG IVPB (22:21)
[2020-10-22] VITALS (26 sets, daily range): BP systolic 91–130; BP diastolic 52–84; PULSE 66–185; RESP 15–29; TEMP 36.6–37.7; O2SAT 86–97
--- NOTE | 2020-10-22 | PC.NURSE ---
Notified Dr. Henderson that pt's HR has sustained 180 since 2337. Pt states he does not feel well, but that symptoms have been unchanged since he spoke with Dr. Armas. New order received for Metoprolol 5mg IVP q 6hrs, first dose now. Instructed to call Dr. Henderson back if pt continues to sustain HR in the 180s.
[2020-10-22] MEDS: METOPROLOL TARTRATE INJ 5 MG/5 ML VIAL (00:09)
[2020-10-22 00:11] LABS: Troponin I 0.059 ng/mL (0.000-0.034)
--- NOTE | 2020-10-22 00:15 | PC.NURSE ---
Updated Dr. Adan to pt's condition. Pt brought home CPAP to hospital. RT added 6L to pt's home machine. O2 sats remain in the mid to upper 80s. New order for bipap received. Pt agreeable.
--- NOTE | 2020-10-22 00:52 | ECG_ITS ---
Measurements Intervals [place] Rate: 106 P: 35 AL: 141 QRS: 76 QRSD: 125 T: -49 QT: 329 QTc: 439 Interpretive Statements ATRIAL FLUTTER/TACHYCARDIA WITH RAPID VENTRICULAR RESPONSE INTRAVENTRICULAR CONDUCTION DELAY ST-T WAVE ABNORMALITY IN INFERIOR LEADS- CONSIDER ISCHEMIA BASELINE ARTIFACT- I, III, AVR, AVL, V1 ABNORMAL ECG Electronically Signed On 10-22-2020 9:53:33 CDT by Ramin Stanton D.O.
[2020-10-22] MEDS: AMIODARONE 360 MG/D5W 200 ML 360 MG/200 ML BAG 33.33 MG IV CONT ×4 (01:16→19:01)
[2020-10-22 03:53] LABS: Alanine Aminotransferase 38 U/L (4-50); Albumin Level 3.9 g/dL (3.5-5.1); Alkaline Phosphatase 52 U/L (38-126); Anion Gap 8 mmol/L (8-16); Aspartate Amino Transferase 40 U/L (17-59); Bilirubin,Total 2.2 mg/dL (0.2-1.3); Blood Urea Nitrogen 19 mg/dL (9-20); Calcium 8.6 mg/dL (8.4-10.2); Carbon Dioxide 25 mmol/L (22-30); Chloride 102 mmol/L (98-107); Estimated CRCL calculation 71 ml/min; Estimated Glomerular Filt Rate 55; Glucose 170 mg/dL (75-110); Magnesium 1.9 mg/dL (1.6-2.3); Potassium 3.6 mmol/L (3.4-5.0); Sodium 135 mmol/L (137-145)
[2020-10-22 04:04] LABS: Troponin I 0.065 ng/mL (0.000-0.034)
[2020-10-22] MEDS: SODIUM CHLORIDE 0.9% IV 1,000 ML 125 ML IV CONT ×2 (04:18→13:43)
[2020-10-22 04:51] LABS: Lactate Dehydrogenase 291 U/L (313-618)
[2020-10-22] MEDS: METOPROLOL TARTRATE INJ 5 MG/5 ML VIAL IV PUSH ×2 (07:42→16:30)
[2020-10-22 07:49] LABS: Glucose Point of Care 147 mg/dl (65-105)
[2020-10-22] MEDS: carvediloL 25 MG TABLET 50 MG PO ×2 (09:13→20:12)
[2020-10-22] MEDS: LOSARTAN POTASSIUM 100 MG TABLET PO (09:13)
[2020-10-22] MEDS: FLUTICASONE PROPIONATE 0.05% NA SPR 16 GM BTL (*BKC) 1 SPRAY NASAL ×2 (09:14→20:13)
[2020-10-22] MEDS: hydroCHLOROthiazide 25 MG TABLET PO (09:14)
[2020-10-22] MEDS: amLODIPine BESYLATE 5 MG TABLET 10 MG PO (09:14)
[2020-10-22] MEDS: OMEGA 3 POLYUNSAT FATTY ACIDS 1 GM CAP 4 GM PO ×2 (09:15→16:19)
[2020-10-22] MEDS: allopurinoL 300 MG TABLET PO (09:15)
--- NOTE | 2020-10-22 09:56 | PM.PNGS ---
Progress Note: A&P Assessment and Plan (1) Acute diverticulitis: Code(s): K57.92 - Diverticulitis of intestine, part unspecified, without perforation or abscess without bleeding Status: Acute Assessment and Plan: Acute diverticulitis with possible early abscess. No indication for surgical intervention at this time. Continue IV antibiotics and clear liquids. Serial abd exams. May slowly advance eventually to a low fiber diet. Pending possible transfer, mentioned below. He will need a colonoscopy eventually, which will further assess the possible colovesicle fistula. (2) Atrial flutter: Code(s): I48.92 - Unspecified atrial flutter Status: Acute Assessment and Plan: Having runs of nonsustained ventricular tachycardia and recurrent atrial flutter. Cardiology consulted and following. Possibility of transfer to tertiary care facility. Now on amiodarone drip. (3) Anticoagulated by anticoagulation treatment: Code(s): Z79.01 - rn long term care (current) use of anticoagulants Status: Acute Assessment and Plan: On Xarelto for above. (4) Dilated cardiomyopathy: Code(s): I42.0 - Dilated cardiomyopathy Status: Acute (5) Obesity, morbid, BMI 40.0-49.9: Code(s): E66.01 - Morbid (severe) obesity due to excess calories Status: Acute (6) Diabetes: Code(s): E11.9 - Type 2 diabetes mellitus without complications Status: Chronic Assessment and Plan: Management per Hospitalist. Additional Plan I have discussed the plan of care with Dr. Johnson. Subjective Subjective Date/Time Seen: 10/22/20 09:56 Patient reports: no new complaints, still having pain, flatus, no bowel movement and afebrile Interval history: Patient seen this morning in the ICU as IMU overflow. He had an event last night where he felt that his ICD fired. He was found to have a heart rate in the 190-200's and was transferred. Cardiology was consulted and has seen the patient. Per the patient and the nurse, Cardiology wants him to be transferred to [place] today. He reports still having the same abdominal pain as yesterday, mostly in the LLQ with movement. Reports pain is minimal when at rest or sitting. He did have issues with voiding overnight but felt that it was because they werent letting him sit up on the side of the bed to urinate. He was able to sit up this morning and voided over 700 cc. No other complaints at this time. Review of Systems Review of Systems: All systems reviewed & are unremarkable except as noted in HPI and below Exam Const: General: no acute distress and awake Nutritional Appearance: obese Resp: Effort & Inspection: no respiratory distress Auscultation: clear to auscultation bilaterally Cardio: Rate: tachycardic Rhythm: abnormal rhythm irregularly irregular GI: Inspection: obesity (large protuberant abd) and no visible herniation GI Palp: Yes Soft to palpation, Yes Tenderness to palpation present (GI) (LLQ and suprapubic), No Guarding due to palpation present (GI), No Rebound tenderness present and Yes Other GI palpation findings present (no peritoneal signs) Auscultation: normal bowel sounds Skin: General skin exam: normal color Neuro: General: moves all extremities and no focal motor deficits Psych: Mental Status: mental status grossly normal Insight: Good insight present (Psych) Judgement: Good judgement present (Psych) Objective Data Vital Signs Vital Signs: Vital Signs - 24 hr 10/21/20 11:30 10/21/20 11:58 10/21/20 12:00 Temperature Pulse Rate Respiratory Rate Blood Pressure Pulse Oximetry 94 93 93 10/21/20 12:15 10/21/20 12:35 10/21/20 12:45 Temperature Pulse Rate Respiratory Rate Blood Pressure Pulse Oximetry 93 92 92 10/21/20 13:27 10/21/20 13:38 10/21/20 13:54 Temperature Pulse Rate Respiratory Rate Blood Pressure Pulse Oximetry 92 92 96 10/21/20 15:01 10/21/20 15:02 10/21/20 15:0
--- NOTE | 2020-10-22 10:24 | PM.PNCARD ---
Progress Note: A&P Assessment and Plan (1) Ventricular tachycardia: Code(s): I47.2 - Ventricular tachycardia Status: Inactive Assessment and Plan: Patient having nonsustained runs of ventricular tachycardia and some sustained runs requiring anti tachy pacing. Hemodynamically stable. He has been taking amiodarone 200 mg daily, And is now on IV amiodarone. After 2 boluses and 1 milligram/minute there still is no improvement in the frequent nonsustained ventricular tachycardia. Was given some empiric magnesium and IV potassium last night; Still a little hypokalemic this morning, potassium 3.6. Will give some more potassium. Last time he had atrial flutter in April 2020 at seem to provoke his ventricular arrhythmias as well. I think his arrhythmias are beyond the scope of what I can take care of and we can take care of at [facility] and I recommend transfer to higher level of care. Discussed with Dr. Morgan. Have a call put in to the [facility] transfer line to speak with electrophysiology. (2) Atrial flutter: Code(s): I48.92 - Unspecified atrial flutter Status: Acute Assessment and Plan: Recurrent atrial flutter with a by mildly elevated heart rate. However interrogation of the pacemaker suggests is atrial fibrillation. Very regular For the most part, however. Had cardioversion a few months ago. Takes Xarelto. I will DC Xarelto and start Lovenox in case the patient needs some procedures. Amiodarone infusion. (3) ICD (implantable cardioverter-defibrillator) in place: Code(s): Z95.810 - Presence of automatic (implantable) cardiac defibrillator Status: Acute Assessment and Plan: Interrogated, no ICD discharges but has needed anti tachy pacing. Spoke with [employer] media sales representative at the bedside and reviewed rhythm strips. (4) Dilated cardiomyopathy: Code(s): I42.0 - Dilated cardiomyopathy Status: Acute Assessment and Plan: EF runs 45-50%. Not in CHF (5) Diverticulitis: Code(s): K57.92 - Diverticulitis of intestine, part unspecified, without perforation or abscess without bleeding Status: Acute Assessment and Plan: Presented with diverticulitis, on antibiotics. Low-grade fever last night. Treatment per hospitalists and surgery. If transferred he will need surgery follow-up at [facility]. (6) Hypertension: Code(s): I10 - Essential (primary) hypertension Status: Chronic Assessment and Plan: I will hold some of his antihypertensives as the patient's blood pressure this morning, after his meds, was soft. (7) Chronic kidney disease, stage 2 (mild): Code(s): N18.2 - Chronic kidney disease, stage 2 (mild) Status: Acute Assessment and Plan: Stable. (8) Hyperlipidemia associated with type 2 diabetes mellitus: Code(s): E11.69 - Type 2 diabetes mellitus with other specified complication; E78.5 - Hyperlipidemia, unspecified Status: Chronic Assessment and Plan: Treatment per hospitalist. Subjective Date/time seen: 10/22/20 10:24 Interval history: Follow-up for atrial fibrillation and repeated runs of sustained and nonsustained ventricular tachycardia. Mr. Heath was diagnosed as a mild nonischemic dilated cardiomyopathy in 2008. His EF runs about 45-50%. He had sustained ventricular tachycardia requiring admission in October 2013 and cardioversion. He had [employer] ICD implant and that time and has been on chronic amiodarone treatment. He had new onset of atrial fibrillation and atrial flutter in April 2020, and underwent cardioversion. He also has morbid obesity, sleep apnea on CPA
--- NOTE | 2020-10-22 10:56 | PM.TDS ---
Transfer Discharge Sum: Prov Provider Date of admission: 10/21/20 14:27 Primary care physician: Soham Pugh, Admitting clinician: Missy Fung MD Consults: 10/21/20 Consult to Physician Routine Comment: Consulting Provider: Megan Armas erecting engineer/ group to consult: cardiology Reason for consultation: possible defilbrilator going off Has provider been notified: Yes 10/21/20 14:01 Consult to Physician Routine Comment: Consulting Provider: Juanita Johnson erecting engineer/MD group to consult: Dr. Johnson Reason for consultation: peridiverticular abscess Has provider been notified: Yes Transfer Discharge Sum: Med Medications Active and Home Medications: Home Medications Jardiance 10 mg PO DAILY 06/15/20 [History Confirmed 10/21/20] Trulicity 1.5 mg SUBCUT WEEKLY 06/15/20 [History Confirmed 10/21/20] Xarelto 20 mg PO 1700 06/15/20 [History Confirmed 10/21/20] allopurinol 300 mg PO DAILY 06/15/20 [History Confirmed 10/21/20] amlodipine 10 mg PO DAILY 06/15/20 [History Confirmed 10/21/20] aspirin 81 mg PO 1700 06/15/20 [History Confirmed 10/21/20] atorvastatin 40 mg PO 1700 06/15/20 [History Confirmed 10/21/20] carvedilol 50 mg PO BID 06/15/20 [History Confirmed 10/21/20] cetirizine [Zyrtec] 10 mg PO DAILY 06/15/20 [History Confirmed 10/21/20] fluticasone propionate 50 mcg INTRANASAL BID 06/15/20 [History Confirmed 10/21/20] lecithin 1,200 mg PO DAILY 06/15/20 [History Confirmed 10/21/20] losartan-hydrochlorothiazide 1 tablet PO DAILY 06/15/20 [History Confirmed 10/21/20] methimazole 5 mg PO EVERY OTHER DAY 06/15/20 [History Confirmed 10/21/20] omega-3 fatty acids 4,000 mg PO BID 06/15/20 [History Confirmed 10/21/20] vitamin B complex 1 cap PO DAILY 06/15/20 [History Confirmed 10/21/20] vitamin E 400 unit PO DAILY 06/15/20 [History Confirmed 10/21/20] amiodarone 200 mg PO DAILY #0 tablet 06/16/20 [Rx Confirmed 10/21/20] clobetasol 1 applic TOPICAL BID PRN 10/21/20 [History Confirmed 10/21/20] metformin 1,000 mg PO BID 10/21/20 [History Confirmed 10/21/20] Active Medications Allopurinol (Allopurinol 300 Mg Tablet) 300 mg PO DAILY [facility] Last Admin: 10/22/20 09:15 Dose: 300 mg Documented by: Amlodipine Besylate (Amlodipine Besylate 5 Mg Tablet) 10 mg PO DAILY [facility] Last Admin: 10/22/20 09:14 Dose: 10 mg Documented by: Aspirin (Aspirin 81 Mg Chewable Tablet) 81 mg PO Q24H [facility] Last Admin: 10/21/20 19:58 Dose: 81 mg Documented by: Atorvastatin Calcium (Atorvastatin 40 Mg Tablet) 40 mg PO Q24H [facility] Last Admin: 10/21/20 19:58 Dose: 40 mg Documented by: Carvedilol (Carvedilol 25 Mg Tablet) 50 mg PO Q12HR [facility] Last Admin: 10/22/20 09:13 Dose: 50 mg Documented by: Dextrose (Dextrose 50% 25 Gm/50 Ml Syringe) 12.5 gm IV PUSH PRN PRN; Protocol PRN Reason: Hypoglycemia Fish Oil ([place] 3 Polyunsat Fatty Acids 1 Gm Cap) 4 gm PO BID [facility] Last Admin: 10/22/20 09:15 Dose: 4 gm Documented by: Fluticasone Propionate (Fluticasone Propionate 0.05% Na Spr 16 Gm Btl (*Bkc)) 1 spray NASAL Q12HR [facility] Last Admin: 10/22/20 09:14 Dose: 1 spray Documented by: Glucagon (Glucagon For Inj 1 Mg Vial) 1 mg IM PRN PRN; Protocol PRN Reason: Hypoglycemia Glucose (Glucose Oral Gel 15 Gm Of Glucse In 37.5 Gm Tube) 15 gm PO PRN PRN; Protocol PRN Reason: Hypoglycemia Hydrochlorothiazide (Hydrochlorothiazide 25 Mg Tablet) 25 mg PO QAM [facility] Last Admin: 10/22/20 09:14 Dose: 25 mg Documented by: Acetaminophen (Ofirmev 1,000 Mg Ivpb) 1,000 mg in 100 mls @ 400 mls/hr IVPB Q6H PRN PRN Reason: Mild Pain (1-3) or Fever Stop: 10/22/20 13:58 Sodium Chloride (Normal Saline Iv) 1,000 mls @ 125 mls/hr IV CONT .Q8H [facility] Last Admin: 10/22/20 04:18 Dose: 125 mls/hr Documented by: Piperacillin/Tazobactam/Dextrose (Zosyn 3.375 Gm/D5w 50ml Pm) 3.375 gm in 50 mls @ 100 mls/hr IVPB Q6H [facility] Last Infusion: 10/22/20 10:30 Dose: Infused Documented by: Dextrose (Dextrose 5% 1,000 Ml) 1,000 mls @ 100 mls/hr IVPB PRN PRN;
[2020-10-22] MEDS: AMIODARONE HCL 200 MG TABLET 400 MG PO ×2 (12:00→21:54)
[2020-10-22] MEDS: KCL 20 MEQ/SW 100 ML 100 ML 50 MEQ IVPB (12:04)
[2020-10-22 12:10] LABS: Glucose Point of Care 318 mg/dl (65-105)
[2020-10-22] MEDS: INSULIN ASPART (*BKC) 100 UNITS/ML SUB-Q (12:10)
[2020-10-22] MEDS: ASPIRIN 81 MG CHEWABLE TABLET PO (16:20)
[2020-10-22] MEDS: ATORVASTATIN 40 MG TABLET PO (16:20)
[2020-10-22 16:24] LABS: Glucose Point of Care 149 mg/dl (65-105)
--- NOTE | 2020-10-22 17:00 | ECG_ITS ---
Measurements Intervals [place] Rate: 72 P: CO: 0 QRS: 21 QRSD: 113 T: 65 QT: 467 QTc: 514 Interpretive Statements ATRIAL FLUTTER/TACHYCARDIA INTRAVENTRICULAR CONDUCTION DELAY DELAYED PRECORDIAL R/S TRANSITION CONSIDER INFERIOR INFARCT, AGE INDETERMINATE BASELINE ARTIFACT- V2 ABNORMAL ECG Electronically Signed On 10-22-2020 11:34:58 CDT by Ramin Stanton D.O.
[2020-10-22 18:47] LABS: Anion Gap 10 mmol/L (8-16); Blood Urea Nitrogen 18 mg/dL (9-20); Calcium 8.4 mg/dL (8.4-10.2); Carbon Dioxide 25 mmol/L (22-30); Chloride 100 mmol/L (98-107); Estimated CRCL calculation 62 ml/min; Estimated Glomerular Filt Rate 47; Glucose 128 mg/dL (75-110); Potassium 3.4 mmol/L (3.4-5.0); Sodium 135 mmol/L (137-145)
[2020-10-22] MEDS: ENOXAPARIN 100 MG/ML SYRINGE SUB-Q (20:12)
[2020-10-22] MEDS: ENOXAPARIN 40 MG/0.4 ML SYRINGE SUB-Q (20:13)
[2020-10-22 21:59] LABS: Glucose Point of Care 157 mg/dl (65-105)
[2020-10-23] VITALS (18 sets, daily range): BP systolic 92–130; BP diastolic 58–80; PULSE 71–105; RESP 16–24; TEMP 36.6–36.9; O2SAT 92–99
--- NOTE | 2020-10-23 | PC.NURSE ---
Trialed patient on home cpap unit per patient request with supplemental O2. Patient continues to drop saturations and was placed on hospital unit on cpap 15 with 35% fiO2.
[2020-10-23] MEDS: SODIUM CHLORIDE 0.9% IV 1,000 ML 125 ML IV CONT ×3 (00:14→18:01)
[2020-10-23] MEDS: AMIODARONE 360 MG/D5W 200 ML 360 MG/200 ML BAG 33.33 MG IV CONT ×4 (00:16→18:00)
[2020-10-23 04:53] LABS: Basophils Percent Auto 0.2 % (0.2-1.2); Eosinophils Absolute Auto 0.1 K/mm3 (0-0.3); Eosinophils Percent Auto 1.3 % (0-4.4); Hematocrit 41.8 % (42.0-52.0); Hemoglobin 13.9 g/dL (14.0-18.0); Immature Granulocyte Absolute 0.04 K/mm3 (0.00-0.031); Immature Granulocyte Percent A 0.5 % (0-0.5); Lymphocytes Absolute Auto 1.84 K/mm3 (0.9-3.2); Lymphocytes Percent Auto 21.2 % (18.3-44.2); Mean Corpuscular HGB Conc 33.3 g/dl (32-36); Mean Corpuscular Hemoglobin 32.5 pg (26-34); Mean Corpuscular Volume 97.7 fl (80-100); Mean Platelet Volume 10.5 fl (7.4-10.4); Monocytes Absolute Auto 0.7 K/mm3 (0.1-0.6); Monocytes Percent Auto 8.3 % (2.6-8.5); Neutrophils Absolute Auto 5.9 K/mm3 (1.3-6.7); Neutrophils Percent Auto 68.5 % (45.5-73.1); Platelet Count Result 154 k/mm3 (150-375); Red Blood Count 4.28 M/mm3 (4.6-6.20); Red Cell Distribution Width 14.9 % (11.5-14.5); White Blood Count 8.7 K/mm3 (4.5-10.0)
[2020-10-23 05:04] LABS: Anion Gap 7 mmol/L (8-16); Blood Urea Nitrogen 16 mg/dL (9-20); Carbon Dioxide 25 mmol/L (22-30); Chloride 105 mmol/L (98-107); Estimated CRCL calculation 70 ml/min; Estimated Glomerular Filt Rate 55; Glucose 125 mg/dL (75-110); Magnesium 1.9 mg/dL (1.6-2.3); Potassium 3.3 mmol/L (3.4-5.0); Sodium 137 mmol/L (137-145)
[2020-10-23] MEDS: AMIODARONE HCL 200 MG TABLET 400 MG PO ×3 (06:33→21:12)
--- NOTE | 2020-10-23 07:00 | ECG_ITS ---
Measurements Intervals [place] Rate: 95 P: [place]: 0 QRS: 59 QRSD: 123 T: -9 QT: 416 QTc: 523 Interpretive Statements ATRIAL FLUTTER/TACHYCARDIA VENTRICULAR PREMATURE COMPLEXES INTRAVENTRICULAR CONDUCTION DELAY DELAYED PRECORDIAL R/S TRANSITION NONSPECIFIC ST & T-WAVE ABNORMALITY- INF/LAT LEADS PROLONGED QT INTERVAL ABNORMAL ECG Electronically Signed On 10-23-2020 9:48:42 CDT by Ramin Stanton D.O.
[2020-10-23] MEDS: ENOXAPARIN 100 MG/ML SYRINGE SUB-Q ×2 (07:54→21:13)
[2020-10-23] MEDS: OMEGA 3 POLYUNSAT FATTY ACIDS 1 GM CAP 4 GM PO ×2 (07:54→17:52)
[2020-10-23] MEDS: allopurinoL 300 MG TABLET PO (07:54)
[2020-10-23] MEDS: ENOXAPARIN 40 MG/0.4 ML SYRINGE SUB-Q ×2 (07:55→21:13)
[2020-10-23] MEDS: carvediloL 25 MG TABLET 50 MG PO ×2 (07:58→21:12)
[2020-10-23] MEDS: FLUTICASONE PROPIONATE 0.05% NA SPR 16 GM BTL (*BKC) 1 SPRAY NASAL ×2 (08:05→21:13)
[2020-10-23 08:16] LABS: Glucose Point of Care 137 mg/dl (65-105)
--- NOTE | 2020-10-23 09:48 | PM.PNGS ---
Progress Note: A&P Assessment and Plan (1) Acute diverticulitis: Code(s): K57.92 - Diverticulitis of intestine, part unspecified, without perforation or abscess without bleeding Status: Acute Assessment and Plan: exam improved, cont abx, will start soft diet, OOB/IS, awaiting transfer for cardiac issues Subjective Subjective Date/Time Seen: 10/23/20 09:48 feels better this am, reports tenderness only really present c movement, mil clears, +flatus Review of Systems Review of Systems: All systems reviewed & are unremarkable except as noted in HPI and below Exam Const: General: cooperative, comfortable, no acute distress and ill appearing Nutritional Appearance: obese Orientation/consciousness: patient oriented x3 Resp: Effort & Inspection: normal respiratory effort Auscultation: diminished lung sounds Cardio: Rate: regular rate Rhythm: regular rhythm GI: Inspection: normal to inspection, distended, Pannus present and obesity GI Palp: Yes Soft to palpation, No Firmness to palpation present (GI), Yes Tenderness to palpation present (GI) and No Guarding due to palpation present (GI) Other: soft, sl dist, mild TTP in LLQ Objective Data Vital Signs Vital Signs: Vital Signs - 24 hr 10/22/20 10:00 10/22/20 12:00 10/22/20 14:00 Temperature 36.7 C Pulse Rate 97 88 66 Respiratory Rate 18 15 Blood Pressure 93/78 L 105/84 Pulse Oximetry 92 93 10/22/20 14:35 10/22/20 16:00 10/22/20 16:30 Temperature 36.7 C Pulse Rate 86 177 H Respiratory Rate 24 H Blood Pressure 121/81 Pulse Oximetry 93 94 10/22/20 18:00 10/22/20 20:00 10/22/20 20:12 Temperature 36.7 C Pulse Rate 103 H 83 82 Respiratory Rate 25 H Blood Pressure 105/80 Pulse Oximetry 94 10/22/20 21:54 10/22/20 22:00 10/23/20 00:00 Temperature 36.9 C Pulse Rate 76 77 79 Respiratory Rate 17 Blood Pressure 92/58 L Pulse Oximetry 96 10/23/20 02:00 10/23/20 03:11 10/23/20 04:00 Temperature 36.9 C Pulse Rate 73 80 Respiratory Rate 16 Blood Pressure 92/62 L Pulse Oximetry 97 97 10/23/20 06:00 10/23/20 06:33 10/23/20 07:58 Temperature Pulse Rate 84 80 85 Respiratory Rate Blood Pressure Pulse Oximetry 10/23/20 08:00 Temperature 36.6 C Pulse Rate 90 Respiratory Rate 24 H Blood Pressure 119/80 Pulse Oximetry 92 Intake/Output Intake/Output: Intake & Output 10/20/20 10/21/20 10/22/20 10/23/20 23:59 23:59 23:59 23:59 Intake Total 1960 5550 1700 Output Total 350 2175 2275 Balance 1610 0855 -787 Meds/Results Medications: Active Medications Generic Name Dose Route Start Last Admin Trade Name Freq PRN Reason Stop Dose Admin Allopurinol 300 mg 10/22/20 09:00 10/23/20 07:54 Allopurinol 300 Mg Tablet PO 300 mg DAILY KEVIN Administration Amiodarone HCl 400 mg 10/22/20 14:00 10/23/20 06:33 Amiodarone Hcl 200 Mg Tablet PO 400 mg Q8HR KEVIN Administration Amlodipine Besylate 10 mg 10/22/20 09:00 10/22/20 09:14 Amlodipine Besylate 5 Mg Tablet PO 10 mg DAILY KEVIN Administration Aspirin 81 mg 10/21/20 17:00 10/22/20 16:20 Aspirin 81 Mg Chewable Tablet PO 81 mg Q24H KEVIN Administration Atorvastatin Calcium 40 mg 10/21/20 17:00 10/22/20 16:20 Atorvastatin 40 Mg Tablet PO 40 mg Q24H KEVIN Administration Carvedilol 50 mg 10/22/20 09:00 10/23/20 07:58 Carvedilol 25 Mg Tablet PO 50 mg Q12HR KEVIN Administration Dextrose 12.5 gm 10/21/20 15:12 Dextrose 50% 25 Gm/50 Ml Syringe IV PUSH PRN PRN Hypoglycemia Protocol Enoxaparin Sodium 100 mg 10/22/20 21:00 10/23/20 07:54 Enoxaparin 100 Mg/Ml Syringe SUB-Q 100 mg Q12HR KEVIN Administration Enoxaparin Sodium 40 mg 10/22/20 21:00 10/23/20 07:55 Enoxaparin 40 Mg/0.4 Ml Syringe SUB-Q 40 mg Q12HR KEVIN Administration Fish Oil 4 gm 10/21/20 17:00 07/09/21 07:54 [place] 3 Polyunsat Fatty Acids 1 Gm Cap PO 4 gm BID KEVIN
--- OUTSIDE RECORDS SUMMARY | 2020-10-23 10:13 | XMS_ITS ---
:1955 Author Care Team Providers Name Role Phone DR. LAVON SWANSON Primary Care Provider [phone] DR. LAVON SWANSON Referring Provider [phone] Allergies None recorded. Medications Name Status Start Date Stop Date ? ? allopurinol 300 mg tablet Active ? Not av ailable amiodarone 100 mg tablet Completed ? 021 amiodarone 200 mg tablet Active ? Not ester ilable amlodipine 10 mg tablet Active ? Not avai lable amoxicillin 500 mg capsule Completed ? 03/01 aspirin 81 mg tablet,delayed release Active 01/25/2013 Not available Take 1 tablet every day by oral route. atorvastatin 20 mg tablet Unknown 11/12/2013 Not av ailable Take 1 tablet every day by oral route. atorvastatin 40 mg tablet Active ? Not av ailable Augmentin 875 mg-125 mg tablet Completed ? 0 01/12/2018 Take 1 tablet every 12 hours by oral route. azelastine 137 mcg (0.1 %) nasal Completed ? 04/03/2020 spray aerosol benzonatate 200 mg capsule Completed ? 03/01 carvedilol 25 mg tablet Active ? Not avai lable cephalexin 500 mg capsule Completed ? 2020 clotrimazole-betamethasone 1 Active ? Not available %-0.05 % topical cream Coreg 12.5 mg tablet Unknown 01/25/2013 Not availab le Take 1 tablet twice a day by oral route. doxycycline hyclate 100 mg capsule Completed ? 03/01/2019 doxycycline hyclate 100 mg tablet Active ? Not available Eucrisa 2 % topical ointment Active ? Not available Fish Oil 1,000 mg capsule Active 01/25/2013 Not av ailable
--- OUTSIDE RECORDS SUMMARY | 2020-10-23 10:13 | XMS_ITS ---
:1955 Author Care Team Providers Name Role Phone DR. LAVON SWANSON Primary Care Provider [phone] DR. LAVON SWANSON Referring Provider [phone] Allergies Code Code System Name Reaction Severity Status Onset NKDA ? Medications Name Status Start Date Stop Date ? ? allopurinol 300 mg tablet Active ? Not av ailable amiodarone 100 mg tablet Active ? Not ester ilable amiodarone 200 mg tablet Completed ? 019 amlodipine 10 mg tablet Active ? Not avai lable amoxicillin 500 mg capsule Completed ? 03/01 aspirin 81 mg tablet,delayed release Active ? Not available Take 1 tablet every day by oral route. atorvastatin 20 mg tablet Unknown ? Not av ailable Take 1 tablet every day by oral route. Augmentin 875 mg-125 mg tablet Completed ? 0 01/12/2018 Take 1 tablet every 12 hours by oral route. azelastine 137 mcg (0.1 %) nasal spray Completed ? 04/03/2020 aerosol benzonatate 200 mg capsule Completed ? 03/01 cephalexin 500 mg capsule Completed ? 2018 clotrimazole-betamethasone 1 %-0.05 % topical cream Active ? Not available apply twice a day Coreg 12.5 mg tablet Unknown ? Not availab le Take 1 tablet twice a day by oral route. Coreg 25 mg tablet Active ? Not available Take 1 tablet twice a day by oral route. doxycycline hyclate 100 mg capsule Completed ? 03/01/2019 Eucrisa 2 % topical ointment Completed ? Fish Oil 1,000 mg capsule Active ? Not av ailable
[2020-10-23 12:05] LABS: Glucose Point of Care 210 mg/dl (65-105)
[2020-10-23] MEDS: INSULIN ASPART (*BKC) 100 UNITS/ML SUB-Q (12:05)
--- NOTE | 2020-10-23 14:48 | PC.NURSE ---
This patient, Darnell Heath ., was received from [ICU-1] on 10/23/20 at 1440. Patient/family oriented to unit policies and routines. Report received from MORENO Hinkle @ [phone]
--- NOTE | 2020-10-23 16:00 | PM.PNCARD ---
Progress Note: A&P Assessment and Plan (1) Ventricular tachycardia: Code(s): I47.2 - Ventricular tachycardia Status: Inactive Assessment and Plan: Patient having nonsustained runs of ventricular tachycardia and some sustained runs requiring anti tachy pacing. Hemodynamically stable. He has been taking amiodarone 200 mg daily, And is now on IV amiodarone. After 2 boluses and 1 milligram/minute there still is no improvement in the frequent nonsustained ventricular tachycardia. Was given some empiric magnesium and IV potassium last night; Still a little hypokalemic this morning, potassium 3.6. Will give some more potassium. Last time he had atrial flutter in April 2020 at seem to provoke his ventricular arrhythmias as well. I think his arrhythmias are beyond the scope of what I can take care of and we can take care of at [facility] and I recommend transfer to higher level of care. Discussed with Dr. Morgan. Have a call put in to the [place] transfer line to speak with electrophysiology. Continuing to await transfer to [facility]. Patient had several short runs of VT on telemetry last night but otherwise no ectopy and now is In AFib /a flutter with a controlled rate. (2) Atrial flutter: Code(s): I48.92 - Unspecified atrial flutter Status: Acute Assessment and Plan: Recurrent atrial flutter with a by mildly elevated heart rate. However interrogation of the pacemaker suggests is atrial fibrillation. Very regular For the most part, however. Had cardioversion a few months ago. Takes Xarelto. I will DC Xarelto and start Lovenox in case the patient needs some procedures. Amiodarone infusion. (3) ICD (implantable cardioverter-defibrillator) in place: Code(s): Z95.810 - Presence of automatic (implantable) cardiac defibrillator Status: Acute Assessment and Plan: Interrogated, no ICD discharges but has needed anti tachy pacing. Spoke with [employer] retention representative at the bedside and reviewed rhythm strips. (4) Dilated cardiomyopathy: Code(s): I42.0 - Dilated cardiomyopathy Status: Acute Assessment and Plan: EF runs 45-50%. Not in CHF (5) Diverticulitis: Code(s): K57.92 - Diverticulitis of intestine, part unspecified, without perforation or abscess without bleeding Status: Acute Assessment and Plan: Presented with diverticulitis, on antibiotics. Low-grade fever last night. Treatment per hospitalists and surgery. If transferred he will need surgery follow-up at [place]. (6) Hypertension: Code(s): I10 - Essential (primary) hypertension Status: Chronic Assessment and Plan: Some of his antihypertensive medications were held yesterday due to hypotension. Today, his blood pressure is at goal. (7) Chronic kidney disease, stage 2 (mild): Code(s): N18.2 - Chronic kidney disease, stage 2 (mild) Status: Acute Assessment and Plan: Stable. (8) Hyperlipidemia associated with type 2 diabetes mellitus: Code(s): E11.69 - Type 2 diabetes mellitus with other specified complication; E78.5 - Hyperlipidemia, unspecified Status: Chronic Assessment and Plan: Treatment per hospitalist. Subjective Date/time seen: 10/23/20 16:00 Interval history: Follow-up for atrial fibrillation and repeated runs of sustained and nonsustained ventricular tachycardia. Mr. Heath was diagnosed as a mild nonischemic dilated cardiomyopathy in 2008. His EF runs about 45-50%. He had sustained ventricular tachycardia requiring admission in October 2013 and cardioversion. He had [employer] ICD implant and that time and has been on chronic amiodarone treatm
[2020-10-23 16:55] LABS: Glucose Point of Care 122 mg/dl (65-105)
[2020-10-23] MEDS: ATORVASTATIN 40 MG TABLET PO (17:52)
[2020-10-23] MEDS: ASPIRIN 81 MG CHEWABLE TABLET PO (17:52)
[2020-10-23] MEDS: methiMAzole 5 MG TAB PO (17:53)
--- NOTE | 2020-10-23 18:19 | PM.IMPN ---
Progress Note: A&P Assessment and Plan (1) Diverticulitis: Code(s): K57.92 - Diverticulitis of intestine, part unspecified, without perforation or abscess without bleeding Status: Acute Assessment and Plan: 10/22/20 10:56 Patient was seen by Cardiology and plan is transfer the patient to [facility] further workup, patient has been accepted however the bed is not available, patient is 65-year-old male with history cardiomyopathy with ICD, ventricle tachycardia, paroxysmal atrial fibrillation patient initially presented emergency depart with complaint left lower quadrant pain was diagnosed with diverticulitis however and patient brought to the low he went into tachycardia, I was present in the room patient was given Lopressor, adenosis with some improvement in his heart, on 10/22 I received a call from Cardiology the patient be transferred to [facility] for further workup for his ventricle tachycardia, he has been accepted but bed is not available. patient is also found to sigmoid diverticuli patient started Zosyn, states the pain is getting better denies any nausea or vomiting fever or chills,denies any chest pain or shortness. (2) Atrial flutter: Code(s): I48.92 - Unspecified atrial flutter Status: Acute Assessment and Plan: patient seen by Cardiology now on amiodarone rate is trending (3) Diabetes: Code(s): E11.9 - Type 2 diabetes mellitus without complications Status: Chronic Assessment and Plan: will continue home regimen and monitor (4) Hypertension: Code(s): I10 - Essential (primary) hypertension Status: Chronic Assessment and Plan: continue home regimen and monitor Subjective Date/time seen: 10/22/20 10:56 Patient was seen by Cardiology and plan is transfer the patient to [facility] further workup, patient has been accepted however the bed is not available, patient is 65-year-old male with history cardiomyopathy with ICD, ventricle tachycardia, paroxysmal atrial fibrillation patient initially presented emergency depart with complaint left lower quadrant pain was diagnosed with diverticulitis however and patient brought to the low he went into tachycardia, I was present in the room patient was given Lopressor, adenosis with some improvement in his heart, on 10/22 I received a call from Cardiology the patient be transferred to [facility] for further workup for his ventricle tachycardia, he has been accepted but bed is not available. patient is also found to sigmoid diverticuli patient started Zosyn, states the pain is getting better denies any nausea or vomiting fever or chills,denies any chest pain or shortness. Review of Systems Review of Systems: ROS unobtainable: Yes unobtainable due to medical condition Exam Narrative: Exam Narrative: Patient is comfortable, NAD HEENT: eyes are clear and none icteric LUNGS: bilateral fair air entry minimal rhonchi HEART: RR S1S2 ABD: bowel sounds positive diffusely tender Lower extremities: no edema SKIN: nonjaundiced Neuro: grossly intact. Objective Data Vital Signs Vital Signs: Vital Signs - 24 hr 10/22/20 20:00 10/22/20 20:12 10/22/20 21:54 Temperature 98.1 F Pulse Rate 83 82 76 Respiratory Rate 25 H Blood Pressure 105/80 Pulse Oximetry 94 10/22/20 22:00 10/23/20 00:00 10/23/20 02:00 Temperature 98.4 F Pulse Rate 77 79 73 Respiratory Rate 17 Blood Pressure 92/58 L Pulse Oximetry 96 10/23/20 03:11 10/23/20 04:00 10/23/20 06:00 Temperature 98.4 F Pulse Rate 80 84 Respiratory Rate 16 Blood Pressure 92/62 L Pulse Oximetry 97 97 10/23/20 06:33 10/23/20 07:58 10/23/20 08:00 Temperature 97.9 F Pulse Rate 80 85 90 Respiratory Rate 24 H Blood Pressure 119/80 Pulse Oximetry 92 10/23/20 10:00 10/23/20 12:00 10/23/20 12:31 Temperature Pulse Rate 75 90 81 Respiratory Rate 24 H Blood Pressure 117/66
--- NOTE | 2020-10-23 18:35 | PM.IMPN ---
Progress Note: A&P Assessment and Plan (1) Diverticulitis: Code(s): K57.92 - Diverticulitis of intestine, part unspecified, without perforation or abscess without bleeding Status: Acute Assessment and Plan: 10/23/20 18:35 Patient was seen by Cardiology and plan is transfer the patient to [facility] further workup, patient has been accepted however the bed is not available, 10/22 patient is 65-year-old male with history cardiomyopathy with ICD, ventricle tachycardia, paroxysmal atrial fibrillation patient initially presented emergency depart with complaint left lower quadrant pain was diagnosed with diverticulitis however and patient brought to the low he went into tachycardia, I was present in the room patient was given Lopressor, adenosis with some improvement in his heart, on 10/22 I received a call from Cardiology the patient be transferred to [facility] for further workup for his ventricle tachycardia, he has been accepted but bed is not available. patient is also found to sigmoid diverticuli patient started Zosyn, states the pain is getting better denies any nausea or vomiting fever or chills,denies any chest pain or shortness. 10/23 patient stats pain in LLQ is better dnies any n/v, seen by surgery Service recommended to continue IV antibiotic, seen by cardiology patient with recurrent flutter on amiodarone, waiting for the transfer to [facility] further evaluation manage. (2) Atrial flutter: Code(s): I48.92 - Unspecified atrial flutter Status: Acute Assessment and Plan: patient seen by Cardiology now on amiodarone rate is trending (3) Diabetes: Code(s): E11.9 - Type 2 diabetes mellitus without complications Status: Chronic Assessment and Plan: will continue home regimen and monitor (4) Hypertension: Code(s): I10 - Essential (primary) hypertension Status: Chronic Assessment and Plan: continue home regimen and monitor Subjective Date/time seen: 10/23/20 18:35 Patient was seen by Cardiology and plan is transfer the patient to [facility] further workup, patient has been accepted however the bed is not available, 10/22 patient is 65-year-old male with history cardiomyopathy with ICD, ventricle tachycardia, paroxysmal atrial fibrillation patient initially presented emergency depart with complaint left lower quadrant pain was diagnosed with diverticulitis however and patient brought to the low he went into tachycardia, I was present in the room patient was given Lopressor, adenosis with some improvement in his heart, on 10/22 I received a call from Cardiology the patient be transferred to [facility] for further workup for his ventricle tachycardia, he has been accepted but bed is not available. patient is also found to sigmoid diverticuli patient started Zosyn, states the pain is getting better denies any nausea or vomiting fever or chills,denies any chest pain or shortness. 10/23 patient stats pain in LLQ is better dnies any n/v, seen by surgery Service recommended to continue IV antibiotic, seen by cardiology patient with recurrent flutter on amiodarone, waiting for the transfer to [facility] further evaluation manage. Review of Systems Review of Systems: All systems reviewed & are unremarkable except as noted in HPI and below ROS unobtainable: Yes unobtainable due to medical condition Objective Data Vital Signs Vital Signs: Vital Signs - 24 hr 10/22/20 20:00 10/22/20 20:12 10/22/20 21:54 Temperature 98.1 F Pulse Rate 83 82 76 Respiratory Rate 25 H Blood Pressure 105/80 Pulse Oximetry 94 10/22/20 22:00 10/23/20 00:00 10/23/20 02:00 Temperature 98.4 F Pulse Rate 77 79 73 Respiratory Rate 17 Blood Pressure 92/58 L Pulse Oximetry 96 10/23/20 03:11 10/23/20 04:00 10/23/20 06:00 Temperature 98.4 F Pulse Rate 80 84 Respiratory Rate 16 Blood Pressure 92/62 L Pulse Oximetry 97 9
--- NOTE | 2020-10-23 19:33 | PC.NURSE ---
Report called to MORENO Green @ [facility] @ 1800. Pt awaiting ambulance for transfer to room [id number].
--- NOTE | 2020-10-24 10:10 | PM.TDS ---
Transfer Discharge Sum: Prov Provider Date of admission: 10/21/20 14:27 Primary care physician: Soham Pugh, MD Admitting clinician: Missy Fung MD Consults: 10/21/20 Consult to Physician Routine Comment: Consulting Provider: Megan Armas call center specialist/MD group to consult: cardiology Reason for consultation: possible defilbrilator going off Has provider been notified: Yes 10/21/20 14:01 Consult to Physician Routine Comment: Consulting Provider: Juanita Johnson call center specialist/MD group to consult: Dr. Johnson Reason for consultation: peridiverticular abscess Has provider been notified: Yes DS: Admitting Diagnosis Admitting Diagnosis Admitting Diagnosis: Chief Complaint: Abdominal pain DS: Discharge Diagnosis Discharge Diagnosis (1) Diverticulitis: Code(s): K57.92 - Diverticulitis of intestine, part unspecified, without perforation or abscess without bleeding Status: Acute Assessment and Plan: 10/23/20 18:35 Patient was seen by Cardiology and plan is transfer the patient to [facility] further workup, patient has been accepted however the bed is not available, 10/22 patient is 65-year-old male with history cardiomyopathy with ICD, ventricle tachycardia, paroxysmal atrial fibrillation patient initially presented emergency depart with complaint left lower quadrant pain was diagnosed with diverticulitis however and patient brought to the low he went into tachycardia, I was present in the room patient was given Lopressor, adenosis with some improvement in his heart, on 10/22 I received a call from Cardiology the patient be transferred to [facility] for further workup for his ventricle tachycardia, he has been accepted but bed is not available. patient is also found to sigmoid diverticuli patient started Zosyn, states the pain is getting better denies any nausea or vomiting fever or chills,denies any chest pain or shortness. 10/23 patient stats pain in LLQ is better dnies any n/v, seen by surgery Service recommended to continue IV antibiotic, seen by cardiology patient with recurrent flutter on amiodarone, waiting for the transfer to [facility] further evaluation manage. (2) Atrial flutter: Code(s): I48.92 - Unspecified atrial flutter Status: Acute Assessment and Plan: patient seen by Cardiology now on amiodarone rate is trending (3) Diabetes: Code(s): E11.9 - Type 2 diabetes mellitus without complications Status: Chronic Assessment and Plan: will continue home regimen and monitor (4) Hypertension: Code(s): I10 - Essential (primary) hypertension Status: Chronic Assessment and Plan: continue home regimen and monitor Transfer Discharge Sum: Med Medications Active and Home Medications: Home Medications Jardiance 10 mg PO DAILY 06/15/20 [History Confirmed 10/21/20] Trulicity 1.5 mg SUBCUT WEEKLY 06/15/20 [History Confirmed 10/21/20] Xarelto 20 mg PO 1700 06/15/20 [History Confirmed 10/21/20] allopurinol 300 mg PO DAILY 06/15/20 [History Confirmed 10/21/20] amlodipine 10 mg PO DAILY 06/15/20 [History Confirmed 10/21/20] aspirin 81 mg PO 1700 06/15/20 [History Confirmed 10/21/20] atorvastatin 40 mg PO 0 06/15/20 [History Confirmed 10/21/20] carvedilol 50 mg PO BID 06/15/20 [History Confirmed 10/21/20] cetirizine [Zyrtec] 10 mg PO DAILY 06/15/20 [History Confirmed 10/21/20] fluticasone propionate 50 mcg INTRANASAL BID 06/15/20 [History Confirmed 10/21/20] lecithin 1,200 mg PO DAILY 06/15/20 [History Confirmed 10/21/20] losartan-hydrochlorothiazide 1 tablet PO DAILY 06/15/20 [History Confirmed 10/21/20] methimazole 5 mg PO EVERY OTHER DAY 06/15/20 [History Confirmed 10/21/20] omega-3 fatty acids 4,000 mg PO BID 06/15/20 [History Confirmed 10/21/20] vitamin B complex 1 cap PO DAILY 06/15/20 [History Confirmed 10/21/20] vitamin E 400 unit PO DAILY 06/15/20 [History Confirmed 10/21/20] amiodarone 200 mg PO DA
== END 2020-10-23 21:27 | disposition short-term general hospital (02) | DRG 392 ==
LOC: ANHED 13:55 → ANH3MEDSUR 16:31 → ANHICU 10-26 13:38 → ANHIMU 10-26 13:38
PROVIDERS: Internal Medicine Cardiovascular Disease; Nurse Practitioner; Admitting Provider Internal Medicine; Emergency Provider Nurse Practitioner; PCP Internal Medicine; Visit Provider Family Medicine
DX: K57.20 Diverticulitis of large intestine with perforation and abscess without bleeding (principal); I48.92 Unspecified atrial flutter; I47.2 Ventricular tachycardia; Z68.41 Body mass index [BMI] 40.0-44.9, adult; I42.0 Dilated cardiomyopathy; I48.0 Paroxysmal atrial fibrillation; E11.69 Type 2 diabetes mellitus with other specified complication; E78.49 Other hyperlipidemia; I10 Essential (primary) hypertension; E66.01 Morbid (severe) obesity due to excess calories; G47.30 Sleep apnea, unspecified; Z95.810 Presence of automatic (implantable) cardiac defibrillator; Z79.01 Long term (current) use of anticoagulants
CPT/HCPCS: 36415; 74177; 80048; 80053; 81001; 82948; 83605; 83615; 83690; 83735; 84443; 84484; 85025; 87040; 93005; 94002; 96365; 99285; A9270; J0153; J0282; J1650; J1815; J2543; J3475; J3480; J7030; Q9967

== ENCOUNTER → 2021-01-09 00:17 | Outpatient (CLI) | payer OTHER, SELFPAY ==
[2021-01-09 18:03] LABS: SARS-CoV-2 RNA PCR Negative
== END ==
PROVIDERS: PCP Internal Medicine
DX: R68.89 Other general symptoms and signs (principal); Z20.822 Contact with and (suspected) exposure to COVID-19
CPT/HCPCS: C9803; U0003; U0005

== ENCOUNTER → 2021-02-06 02:10 | Outpatient (CLI) | payer OTHER, SELFPAY ==
[2021-02-06 18:07] LABS: SARS-CoV-2 RNA PCR Negative
== END ==
PROVIDERS: PCP Internal Medicine
DX: Z01.812 Encounter for preprocedural laboratory examination (principal); Z20.822 Contact with and (suspected) exposure to COVID-19
CPT/HCPCS: C9803; U0003; U0005

== ENCOUNTER 2022-05-22 09:12 | Emergency (ER) | payer MEDICARE, OTHER, SELFPAY ==
[2022-05-22 09:28] VITALS: BP 144/81; PULSE 65; RESP 16; TEMP 36.3; O2SAT 100
--- NOTE | 2022-05-22 10:00 | ED.WOUNDLAC ---
HPI - Wound/Laceration General Chief Complaint: Wound/Laceration Stated Complaint: lt index finger laceration Time Seen by Provider: 05/22/22 09:25 Source: patient, RN notes reviewed and old records reviewed Mode of arrival: ambulatory Limitations: no limitations History of Present Illness HPI narrative: 66 year old male presents to express care with laceration to the dorsal aspect of his left index finger along the area above the MCP joint this morning while cutting ham to make breakfast. Patient is on blood thinner and has been applying pressure to wound area due to bleeding. some bleeding noted at this time but has slowed, patient has linear laceration approx 2cm in length. Patient's tetanus is not up to date. Onset (ago): hour(s) (within past hour prior to arrival) Location: other (left index finger) Patient tetanus UTD: No Treatments prior to arrival: bandage Related Data Home Medications Medication Instructions Recorded Confirmed allopurinol 300 mg tablet 300 mg PO DAILY 06/15/20 05/22/22 amlodipine 10 mg tablet 10 mg PO DAILY 06/15/20 05/22/22 aspirin 81 mg tablet 81 mg PO DAILY 06/15/20 05/22/22 atorvastatin 40 mg tablet 40 mg PO DAILY 06/15/20 05/22/22 carvedilol 25 mg tablet 50 mg PO BID 06/15/20 05/22/22 cetirizine 10 mg tablet (Zyrtec) 10 mg PO DAILY 06/15/20 05/22/22 dulaglutide 1.5 mg/0.5 mL 1.5 mg subcut WEEKLY 06/15/20 05/22/22 subcutaneous pen injector (Trulicity) empagliflozin 10 mg tablet 10 mg PO DAILY 06/15/20 05/22/22 (Jardiance) fluticasone propionate 50 50 mcg intranasal BID 06/15/20 05/22/22 mcg/actuation nasal spray,suspension lecithin 1,200 mg capsule 1,200 mg PO DAILY 06/15/20 05/22/22 losartan 100 1 tablet PO DAILY 06/15/20 05/22/22 mg-hydrochlorothiazide 25 mg tablet methimazole 5 mg tablet 5 mg PO EVERY OTHER DAY 06/15/20 05/22/22 omega-3 fatty acids 4,000 mg PO BID 06/15/20 05/22/22 rivaroxaban 20 mg tablet (Xarelto) 20 mg PO DAILY 06/15/20 05/22/22 vitamin B complex 1 cap PO DAILY 06/15/20 05/22/22 vitamin E 268 mg (400 unit) capsule 400 unit PO DAILY 06/15/20 05/22/22 clobetasol 0.05 % topical cream 1 applic topical BID PRN Skin 10/21/20 05/22/22 Irritation metformin 1,000 mg tablet 1,000 mg PO BID 10/21/20 05/22/22 amiodarone 400 mg tablet 400 mg PO DIRECTED 05/22/22 05/22/22 sacubitril 49 mg-valsartan 51 mg 1 tablet PO DAILY 05/22/22 05/22/22 tablet (Entresto) Allergies Allergy/AdvReac Type Severity Reaction Status Date / Time No Known Allergies Allergy Verified 05/22/22 09:19 Review of Systems Review of Systems: CONSTITUTIONAL: Denies fever, chills, or sweats. CARDIOVASCULAR: Denies chest pain, palpitations, or edema. RESPIRATORY: Denies cough or dyspnea. SKIN: Reports laceration to his left dorsal mid aspect of his left index finger from knife while cutting ham at home. MUSCULOSKELETAL: Denies musculoskeletal pain NEUROLOGIC: Denies numbness, or weakness. All systems reviewed & are unremarkable except as noted in HPI and below PMFSH Past Medical History Medical History Atrial flutter With cardioversion 06/2020 Chronic kidney disease, stage 2 (mild) Diabetes Dilated cardiomyopathy Nonischemic cardiomyopathy History of atrial flutter Elective electrical cardioversion in June 2020. On oral anticoagulation. Hyperlipidemia associated with type 2 diabetes mellitus Hypertension ICD (implantable cardioverter-defibrillator) in place Kidney stone Morbid obesity Sleep apnea Compliant with CPAP Ventricular tachycardia 2013 Surgical History Surgical History H/O hernia repair bilateral inguinal H/O shoulder surgery History of appendectomy Open appendectomy History of cardiac catheterization 2013 when admitted with unstable SVT. No findings of ischemic disease on cardiac cath, but found to have EF 33-40%. History of colonoscopy Reportedl
[2022-05-22] MEDS: TETANUS,DIPHTHERIA,AC PERTUSSIS ADULT (0.5 ML) BOOSTRIX IM (10:11)
== END 2022-05-22 10:39 | disposition home or self-care (01) ==
PROVIDERS: Emergency Provider Registered Nurse; PCP Internal Medicine
DX: S61.211A Laceration without foreign body of left index finger without damage to nail, initial encounter (principal); W45.8XXA Other foreign body or object entering through skin, initial encounter; Y93.G9 Activity, other involving cooking and grilling; Z23 Encounter for immunization; I13.10 Hypertensive heart and chronic kidney disease without heart failure, with stage 1 through stage 4 chronic kidney disease, or unspecified chronic kidney disease; E11.22 Type 2 diabetes mellitus with diabetic chronic kidney disease; N18.2 Chronic kidney disease, stage 2 (mild); Z79.84 Long term (current) use of oral hypoglycemic drugs; I48.92 Unspecified atrial flutter; E78.5 Hyperlipidemia, unspecified; Z95.810 Presence of automatic (implantable) cardiac defibrillator; E66.01 Morbid (severe) obesity due to excess calories; Z68.41 Body mass index [BMI] 40.0-44.9, adult; G47.30 Sleep apnea, unspecified; Z79.01 Long term (current) use of anticoagulants; Z79.82 Long term (current) use of aspirin
CPT/HCPCS: 12001; 90471; 90715; 99213; G0463

== ENCOUNTER 2024-04-15 08:01 | Emergency (ER) | payer MEDICARE, OTHER, SELFPAY ==
--- NOTE | ~2024-04-15 | XR_ITS ---
EXAMINATION: XR chest 2V DATE: 04/15/2024 08:39 INDICATION: 8 days of cough TECHNIQUE: frontal and lateral views of the chest were obtained. COMPARISON: Chest radiograph dated 02/26/18 FINDINGS: Focal airspace opacities in the left mid and lower lung zones no pleural effusion or pneumothorax. He art size within normal limits for AP technique. The cardiac pacemaker/AICD with lead tip at the right ventricle. IMPRESSION: 1. Opacities in the left mid and lower lung zone concerning for pneumonia. Recommend radiographic fol low-up to resolution. Reviewed, dictated and finalized at location [facility]. [employer] IMPRESSION: 1. Opacities in the left mid and lower lung zone concerning for pneumonia. Von mmend radiographic follow-up to resolution.
[2024-04-15 08:17] VITALS: BP 121/68; PULSE 88; RESP 16; TEMP 36.7; O2SAT 93
--- NOTE | 2024-04-15 08:24 | ED_ITS ---
HPI - URI/Sore Throat General Chief Complaint: Upper Respiratory Infection Stated Complaint: Cough Time Seen by Provider: 04/15/24 08:16 Source: patient and RN notes reviewed Mode of arrival: ambulatory Limitations: no limitations History of Present Illness HPI Narrative: Patient presents today complaining of an 8 day history of cough that is occasionally productive. Cough is worse at night and patient has heard some slight wheezing occasionally. Denies any other upper respiratory symptoms to include postnasal drip, rhinorrhea, nasal congestion, sore throat cough fever. He has tried some cough drops without much relief. Patient does wear CPAP and has recently noted that the filter has black and white he was cleaning it a few days ago. Related Data Home Medications ?Medication ?Instructions ?Recorded ?Confirmed ?Last Taken ?Type amlodipine 10 mg tablet 10 mg PO DAILY 06/15/20 04/15/24 10/21/20 08:00 History atorvastatin 40 mg tablet 40 mg PO DAILY 06/15/20 04/15/24 10/20/20 17:00 History cetirizine 10 mg tablet (Zyrtec) 10 mg PO DAILY 06/15/20 04/15/24 10/21/20 08:00 History dulaglutide 1.5 mg/0.5 mL 3 mg subcut WEEKLY 06/15/20 04/15/24 10/19/20 17:00 History subcutaneous pen injector (Trulicity) fluticasone propionate 50 50 mcg intranasal BID 06/15/20 04/15/24 10/21/20 08:00 History mcg/actuation nasal spray,suspension methimazole 5 mg tablet 5 mg PO EVERY OTHER DAY 06/15/20 04/15/24 10/19/20 17:00 History rivaroxaban 20 mg tablet (Xarelto) 20 mg PO DAILY 06/15/20 04/15/24 10/20/20 1 7:00 History clobetasol 0.05 % topical cream 1 applic topical BID PRN Skin 10/21/20 04/15/24 Unknown History Irritation amiodarone 400 mg tablet 400 mg PO DIRECTED 05/22/22 04/15/24 Unknown History sacubitril 49 mg-valsartan 51 mg 1 tablet PO DAILY 05/22/22 04/15/24 Unknown History tablet (Entresto) carvedilol 25 mg tablet 25 mg PO BID 07/05/23 04/15/24 Unknown History dapagliflozin propanediol 10 mg 10 mg PO DAILY 07/05/23 04/15/24 Unknown History tablet (Farxiga) Allergies Allergy/AdvReac Type Severity Reaction Status Date / Time No Known Allergies Allergy Verified 04/15/24 08:10 Review of Systems Review of Systems: CONSTITUTIONAL: Denies body aches, fever, chills, or sweats. EYES: Denies visual changes, redness, or discharge. ENT: Denies rhinorrhea, congestion, sore throat, or otalgia. CARDIOVASCULAR: Denies chest pain, palpitations, or edema. RESPIRATORY: Denies dyspnea.+ cough, wheezing GASTROINTESTINAL: Denies abdominal pain, nausea, vomiting, or diarrhea. GENITOURINARY: Denies dysuria or hematuria. SKIN: Denies rash, itching, or wounds. MUSCULOSKELETAL: Denies back pain, joint pain, or myalgia. NEUROLOGIC: Denies headache, numbness, tingling, or weakness. PSYCH: Denies depression or anxiety. [facility] Past Medical History Medical History Chronic kidney disease, stage 2 (mild) ICD (implantable cardioverter-defibrillator) in place History of atrial flutter Elective electrical cardioversion in June 2020. On oral anticoagulation. Kidney stone Hyperlipidemia associated with type 2 diabetes mellitus Diabetes Sleep apnea Compliant with CPAP Morbid obesity Hypertension Atrial flutter With cardioversion 06/2020 Ventricular tachycardia 2013 Dilated cardiomyopathy Nonischemic cardiomyopathy Surgical History Surgical History H/O hernia repair bilateral inguinal Status post lateral meniscus repair S/P rotator cuff repair History of colonoscopy Reportedly normal colonoscopy over 10 years ago. History of inguinal hernia repair, bilateral x 2 in his 20's History of appendectomy Open appendectomy History of cardiac catheterization 2013 when admitted with unstable SVT. No findings of ischemic disease on cardiac cath, but found to have EF 33-40%. H/O shoulder surgery Family History Family History Father Heart disease heart attack, age 63 Heart attack Mother Heart disease Cerebrovascular accident Social History Social History Social History: the patient lives with his and she is the durable power heading maker for healthcare. The patient continues to work for [employer]. They have 2 children together. The patient's lifelong nonsmoker. Occasionally drinks wine. He smoked marijuana in high school and college but has not smoked since then. He does not use any illicit drugs. Smoking status: Never smoker Alcohol intake: current Drinks per week: 4 Alcohol use details: social wine drinker Substance use: never Do You Feel Safe in your Home?: Yes Lack of Transportation: No Lack of Food: Never True Current Housing: I Have Housing Concerned About Future Housing: No Difficulty Paying Gas/Electric Bills: No Difficulty Paying for Meds: No Currently Unemployed: No Education: Bachelor's Degree Difficulty w/ Childcare or Family Care: No Living arrangements: with family Additional living arrangements comments: Lives at home with his . Gender identity (if verbalized by the patient): Male Sexual Orientation (if Verbalized by the Patient): Straight or Heterosexual Spiritual care concerns: No Comments At time of signature, I have reviewed and agree with nursing past medical, surgical, social and family history unless otherwise noted. Please see nursing chart for further information. There is no relevant family history pertinent to the presenting complaint Exam Narrative: GENERAL: Well-appearing, well-nourished, and in no acute distress. HEAD: Normocephalic, atraumatic. EYES: EOMI. No redness or drainage. Conjunctivae normal. ENT: Mucous membranes pink and moist. Nares clear. No rhinorrhea. Throat normal. Uvula midline. NECK: Normal AROM. Supple. No lymphadenopathy. CHEST: No respiratory distress. Clear to auscultation. Deep breath elicits coughing episodes HEART: Regular rate and rhythm. No murmur appreciated. EXTREMITIES: Normal range of motion. No edema. SKIN: Warm, dry, no rash. Capillary refill normal. Normal skin turgor. NEURO: No focal deficits. Alert and oriented x3. Gait steady. PSYCH: Normal affect. No signs of depression or anxiety. Course Course Level of Care: Express Care Visit Vital Signs Vital signs: Vital Signs Temperature 98.1 F 04/15/24 08:17 Pulse Rate 88 04/15/24 08:17 Respiratory Rate 16 04/15/24 08:17 Blood Pressure 121/68 04/15/24 08:17 Pulse Oximetry 93 04/15/24 08:17 Oxygen Delivery Room Air 04/15/24 08:17 Temperature 98.1 F 04/15/24 08:17 Pulse Rate 88 04/15/24 08:17 Respiratory Rate 16 04/15/24 08:17 Blood Pressure 121/68 04/15/24 08:17 Pulse Oximetry 93 04/15/24 08:17 Oxygen Delivery Room Air 04/15/24 08:17 Reviewed MDM - URI/Sore Throat MDM Narrative Medical decision making narrative: X-ray shows pneumonia in the left mid and lower lung zones. Will treat with Augmentin. Unable to also prescribe Azithromycin due to interaction with Amiodarone. Anticipatory guidance given. Differential Diagnosis Differential diagnosis: Likely upper respiratory infection, viral infection, bronchitis and other (Pneumonia) Imaging Data Radiologist's impression: ITS Impressions Chest X-Ray 04/15/24 08:40 IMPRESSION: 1. Opacities in the left mid and lower lung zone concerning for pneumonia. Recommend radiographic follow-up to resolution. Critical Care Time Critical Care Time Critical Care Time: No Discharge Plan Discharge Clinical Impression: Pneumonia Qualifiers: Pneumonia type: due to unspecified organism Laterality: left Lung location: unspecified part of lung Qualified Code(s): J18.9 - Pneumonia, unspecified organism Patient Disposition: Home, Self-Care Condition: Stable Instructions: Antibiotic Form, Community Acquired Pneumonia (DC) Additional Instructions: Your x-ray shows pneumonia today. Please take the Augmentin and azithromycin as directed. Take Mucinex to help break up any chest congestion if needed. Rest and stay hydrated. Follow-up with your PCP in 3 days if symptoms are not improving. Go to the ER immediately if symptoms worsen to include worsening shortness of breath, chest pain, fever. Your blood pressure was elevated above 120/80 today at Urgent Care. This puts you above the threshold for follow up. Please schedule a followup visit with your personal physician as soon as possible, for further evaluation and treatment. Even blood pressure exceeding 120/80 may indicate pre-hypertension. Patient Language: Maltese Prescriptions: New amoxicillin-pot clavulanate 875-125 mg tablet 1 tablet PO Q12H 7 Days Qty: 14 0RF No Action amiodarone 400 mg tablet 400 mg PO DIRECTED sacubitril-valsartan [Entresto] 49-51 mg tablet 1 tablet PO DAILY dapagliflozin propanediol [Farxiga] 10 mg tablet 10 mg PO DAILY atorvastatin 40 mg tablet 40 mg PO DAILY amlodipine 10 mg tablet 10 mg PO DAILY methimazole 5 mg tablet 5 mg PO EVERY OTHER DAY fluticasone propionate 50 mcg/actuation spray,suspension 50 mcg INTRANASAL BID Xarelto 20 mg tablet 20 mg PO DAILY Trulicity 1.5 mg/0.5 mL pen injector 3 mg SUBCUT WEEKLY Patient Comments: Takes on Monday cetirizine [Zyrtec] 10 mg Tablet 10 mg PO DAILY carvedilol 25 mg tablet 25 mg PO BID clobetasol 0.05 % cream 1 applic TOPICAL BID PRN (Reason: Skin Irritation) azelastine 137 mcg (0.1 %) aerosol,spray 1 spray intranasal Q12H Qty: 90 3RF Rx Instructions: administer into each nostril. Aim back/up/out mupirocin 2 % ointment 1 applic topical BID Qty: 66 3RF Rx Instructions: Intranasal Follow-up/Referrals: Keaton,Soham Low MD [Primary Care Provider] - Time of Disposition: 08:59
== END 2024-04-15 09:03 | disposition home or self-care (01) ==
PROVIDERS: Emergency Provider Nurse Practitioner; PCP Internal Medicine
DX: J18.9 Pneumonia, unspecified organism (principal); I12.9 Hypertensive chronic kidney disease with stage 1 through stage 4 chronic kidney disease, or unspecified chronic kidney disease; E11.22 Type 2 diabetes mellitus with diabetic chronic kidney disease; N18.2 Chronic kidney disease, stage 2 (mild); Z79.84 Long term (current) use of oral hypoglycemic drugs; E78.5 Hyperlipidemia, unspecified; E66.01 Morbid (severe) obesity due to excess calories; Z68.41 Body mass index [BMI] 40.0-44.9, adult; I42.8 Other cardiomyopathies; G47.30 Sleep apnea, unspecified; Z95.810 Presence of automatic (implantable) cardiac defibrillator
CPT/HCPCS: 71046; 99213; G0463

== ENCOUNTER 2024-04-20 09:04 | Emergency (ER) | payer MEDICARE, OTHER, SELFPAY ==
--- NOTE | 2024-04-20 09:07 | ED_ITS ---
HPI - URI/Sore Throat General Chief Complaint: Upper Respiratory Infection Stated Complaint: Pneumonia Time Seen by Provider: 04/20/24 09:06 Source: patient Mode of arrival: ambulatory Limitations: no limitations History of Present Illness HPI Narrative: patient is a 60-year-old male who presents with worsening cough And shortness of breath. Patient was seen here on Monday and was given Augmentin. Patient states he is not getting any better. Denies any fever, chills, nausea, vomiting, diarrhea. Related Data Home Medications ?Medication ?Instructions ?Recorded ?Confirmed ?Last Taken ?Type amlodipine 10 mg tablet 10 mg PO DAILY 06/15/20 04/15/24 10/21/20 08:00 History atorvastatin 40 mg tablet 40 mg PO DAILY 06/15/20 04/15/24 10/20/20 17:00 History cetirizine 10 mg tablet (Zyrtec) 10 mg PO DAILY 06/15/20 04/15/24 10/21/20 08:00 History dulaglutide 1.5 mg/0.5 mL 3 mg subcut WEEKLY 06/15/20 04/15/24 10/19/20 17:00 History subcutaneous pen injector (Trulicity) fluticasone propionate 50 50 mcg intranasal BID 06/15/20 04/15/24 10/21/20 08:00 History mcg/actuation nasal spray,suspension methimazole 5 mg tablet 5 mg PO EVERY OTHER DAY 06/15/20 04/15/24 10/19/20 17:00 History rivaroxaban 20 mg tablet (Xarelto) 20 mg PO DAILY 06/15/20 04/15/24 10/20/20 17:00 History clobetasol 0.05 % topical cream 1 applic topical BID PRN Skin 10/21/20 04/15/24 Unknown History Irritation amiodarone 400 mg tablet 400 mg PO DIRECTED 05/22/22 04/15/24 Unknown History sacubitril 49 mg-valsartan 51 mg 1 tablet PO DAILY 05/22/22 04/15/24 Unknown History tablet (Entresto) carvedilol 25 mg tablet 25 mg PO BID 07/05/23 04/15/24 Unknown History dapagliflozin propanediol 10 mg 10 mg PO DAILY 07/05/23 04/15/24 Unknown History tablet (Farxiga) Allergies Allergy/AdvReac Type Severity Reaction Status Date / Time No Known Allergies Allergy Verified 04/20/24 09:54 Review of Systems Review of Systems: All systems reviewed & are unremarkable except as noted in HPI and below Constitutional: Constitutional: Denies body ache(s), Denies chills, Denies fatigue, Denies fever(s), Denies headache(s), Denies malaise and Denies weakness Eyes: Eyes: Denies blurry vision, Denies itchy eyes and Denies loss of vision ENT: Denies otalgia, Denies headache(s), Denies nasal congestion, Denies sinus pain and Denies sore throat Cardiovascular: Cardiovascular: Denies chest pain, Denies irregular heart rhythm and Denies dyspnea Respiratory: Respiratory: Reports cough, Denies dyspnea and Reports dyspnea on exertion Gastrointestinal: Gastrointestinal: Denies abdominal pain, Denies diarrhea, Denies nausea and Denies vomiting Musculoskeletal: Musculoskeletal: Denies back pain, Denies myalgias and Denies arthralgias Integumentary/Breasts: Skin/Breast: Denies pruritus and Denies rash Neurologic: Denies headache(s), Denies loss of vision and Denies weakness Psychiatric: Psychiatric: Reports no additional psychiatric complaints Endocrine: Endocrine: Denies fatigue Allergic/Immunologic: Allergic/Immunologic: Denies itchy eyes PMFSH Past Medical History Medical History Chronic kidney disease, stage 2 (mild) ICD (implantable cardioverter-defibrillator) in place History of atrial flutter Elective electrical cardioversion in June 2020. On oral anticoagulation. Kidney stone Hyperlipidemia associated with type 2 diabetes mellitus Diabetes Sleep apnea Compliant with CPAP Morbid obesity Hypertension Atrial flutter With cardioversion 06/2020 Ventricular tachycardia 2013 Dilated cardiomyopathy Nonischemic cardiomyopathy Surgical History Surgical History H/O hernia repair bilateral inguinal Status post lateral meniscus repair S/P rotator cuff repair History of colonoscopy Reportedly normal colonoscopy over 10 years ago. History of inguinal hernia repair, bilateral x 2 in his 20's History of appendectomy Open appendectomy History of cardiac catheterization 2013 when admitted with unstable SVT. No findings of ischemic disease on cardiac cath, but found to have EF 33-40%. H/O shoulder surgery Family History Family History Father Heart disease heart attack, age 63 Heart attack Mother Heart disease Cerebrovascular accident Social History Social History Social History: the patient lives with his and she is the durable power dental officer for healthcare. The patient continues to work for [employer]. They have 2 children together. The patient's lifelong nonsmoker. Occasionally drinks wine. He smoked marijuana in high school and college but has not smoked since then. He does not use any illicit drugs. Smoking status: Never smoker Alcohol intake: current Drinks per week: 4 Alcohol use details: social wine drinker Substance use: never Do You Feel Safe in your Home?: Yes Lack of Transportation: No Lack of Food: Never True Current Housing: I Have Housing Concerned About Future Housing: No Difficulty Paying Gas/Electric Bills: No Difficulty Paying for Meds: No Currently Unemployed: No Education: Bachelor's Degree Difficulty w/ Childcare or Family Care: No Living arrangements: with family Additional living arrangements comments: Lives at home with his . Gender identity (if verbalized by the patient): Male Sexual Orientation (if Verbalized by the Patient): Straight or Heterosexual Spiritual care concerns: No Comments At time of signature, agree with nursing past medical, surgical, social and family history. There is no relevant family history pertinent to the presenting complaint. Exam Const: General: cooperative, healthy appearing, comfortable, no acute distress and well nourished Nutritional Appearance: well nourished Orientation/consciousness: patient oriented x3 Limitations: no limitations HENMT: Head: normal to inspection, normocephalic and atraumatic Ears: hearing grossly normal bilaterally, external ears normal, TM's normal bilaterally, EAC's normal and no periauricular adenopathy Face/Nose/Sinus: Normal external nose present, Abnormal mucous membranes and turbinates present erythematous bilateral and diffuse, normal facial exam, sinuses nontender and face symmetric Face and sinus: normal facial exam, sinuses nontender and face symmetric Mouth: Yes Normal oral and palatal mucosa present, Yes lip normal, Yes tongue normal, Yes Normal salivary glands and ducts present, Yes oropharynx normal and Yes moist mucous membranes Teeth and gingiva: dentition normal Throat: posterior oropharynx normal, tonsils normal and uvula midline Eyes: General: appearance normal, both eyes and all related structures Alignment and Position: alignment normal and position normal Periorbital: periorbital findings normal Eyelids: eyelids normal Pupils: Equal, round and reactive pupils present Neck: Neck: normal visual inspection, full ROM, no lymphadenopathy and supple Chest: Chest palpation & inspection: normal inspection of the chest and normal palpation of entire chest wall Resp: Effort & Inspection: normal respiratory effort and able to speak in complete sentences Auscultation: clear to auscultation bilaterally, no crackles, no rales, no rhonchi and no wheezes Cardio: Rate: regular rate Rhythm: regular rhythm Heart sounds: S1 normal heart sound present and S2 normal heart sound present GI: Inspection: normal to inspection Skin: General skin exam: normal color and no rashes or lesions noted Neuro: General: patient oriented x3 and moves all extremities Cranial nerves: Yes Equal, round and reactive pupils present Speech: normal speech Gait exam (Neuro): Normal gait present Extrem: General: normal to inspection, full ROM and no edema Psych: Appearance: grossly normal and well kempt Mental Status: mental status grossly normal Speech and movement: Normal speech and movement present Affect: normal affect Attitude: cooperative Thought process: Normal thought process present Course Course Emergency Course: Discharge instructions reviewed with patient, as well as provided in writing per nursing staff. The instructions also include specific and strict return/GO TO THE ER as well as f/u information. All questions have been answered, and the patient deny any further questions with discharge and discharge plan. Portions of this record may have been created with voice recognition software Level of Care: Express Care Visit Vital Signs Vital signs: Vital Signs Temperature 36.4 C L 04/20/24 09:24 Pulse Rate 86 04/20/24 09:24 Respiratory Rate 16 04/20/24 09:24 Blood Pressure 119/66 04/20/24 09:24 Pulse Oximetry 94 04/20/24 09:24 Temperature 36.4 C L 04/20/24 09:24 Pulse Rate 86 04/20/24 09:24 Respiratory Rate 16 04/20/24 09:24 Blood Pressure 119/66 04/20/24 09:24 Pulse Oximetry 94 04/20/24 09:24 Reviewed MDM - URI/Sore Throat MDM Narrative Medical decision making narrative: Pt well hydrated appearing, in no respiratory distress, hemodynamically stable. Recommend supportive care. The patient is stable at time of discharge the clinical impression was discussed and the patient was given the opportunity to ask questions, which were addressed as completely as possible given the information available at present. Anticipatory guidance and return to care precautions were discussed and the importance of primary care follow-up was stressed and encouraged. The patient voiced understanding of the plan, indications to return, and the need for follow-up. Differential diagnosis considered: Matute virus, strep pharyngitis, allergic rhinitis, upper respiratory tract infection, sinusitis, rhinosinusitis, nasopharyngitis. viral pharyngitis, otitis media, otitis externa, otitis effusion, foreign body, cerumen impaction, viral syndrome, and influenza.? Exam findings show no acute concerns or changes; patient is non-toxic appearing and is in no distress.? Patient is appropriate for outpatient treatment and follow- up.? Medical Records Attestation: I reviewed the patient's medical records. Discharge Plan Discharge Clinical Impression: Pneumonia Patient Disposition: Home, Self-Care Condition: Stable Instructions: Pneumonia (ED) Additional Instructions: Take antibiotic as prescribed. Take steroids in the morning with food. Use Tessalon Perles as needed for cough. Other symptomatic treatments include: -Alternate Tylenol and Motrin per package directions for fever or pain. -Antihistamine medication such as Benadryl at night and Zyrtec/Claritin/Darlene during the day can help improve symptoms. -Use Flonase twice a day for 5 days then daily to help reduce the inflammation and dry up your sinuses. -You can also use Sudafed or Mucinex. Be sure to drink plenty of water with these medications at least 8 ounces with every dose and it is important to drink 8 to 10 glasses of water per day. Water is a natural decongestant -Eat and drink things that are easy to swallow, like tea or soup, or popsicles. -Oral rinses such as: Salt water gargles and/or may use topical anesthetic (eg. Chloraseptic spray) or lozenges to relieve dryness or throat pain). -Frequent hand washing or hand atmospheric chemist is one of the best ways to prevent spread of infection. -Using a vaporizer or humidifier at night will also help thin secretions and help with coughing up phlegm. -Follow up with primary care provider in 3-5 days if condition is not improving - For new or worsening symptoms go directly to the nearest ER Patient Language: Luxembourgish Prescriptions: New benzonatate 100 mg capsule 100 mg PO BID PRN (Reason: cough) Qty: 14 0RF prednisone 20 mg tablet 40 mg PO DAILY 5 Days Qty: 10 0RF doxycycline monohydrate 100 mg tablet 100 mg PO BID 7 Days Qty: 14 0RF No Action amiodarone 400 mg tablet 400 mg PO DIRECTED sacubitril-valsartan [Entresto] 49-51 mg tablet 1 tablet PO DAILY amoxicillin-pot clavulanate 875-125 mg tablet 1 tablet PO Q12H 7 Days Qty: 14 0RF dapagliflozin propanediol [Farxiga] 10 mg tablet 10 mg PO DAILY atorvastatin 40 mg tablet 40 mg PO DAILY amlodipine 10 mg tablet 10 mg PO DAILY methimazole 5 mg tablet 5 mg PO EVERY OTHER DAY fluticasone propionate 50 mcg/actuation spray,suspension 50 mcg INTRANASAL BID Xarelto 20 mg tablet 20 mg PO DAILY Trulicity 1.5 mg/0.5 mL pen injector 3 mg SUBCUT WEEKLY Patient Comments: Takes on Monday cetirizine [Zyrtec] 10 mg Tablet 10 mg PO DAILY carvedilol 25 mg tablet 25 mg PO BID clobetasol 0.05 % cream 1 applic TOPICAL BID PRN (Reason: Skin Irritation) azelastine 137 mcg (0.1 %) aerosol,spray 1 spray intranasal Q12H Qty: 90 3RF Rx Instructions: administer into each nostril. Aim back/up/out mupirocin 2 % ointment 1 applic topical BID Qty: 66 3RF Rx Instructions: Intranasal Follow-up/Referrals: Keaton,Soham Low MD [Primary Care Provider] - 3 Days Time of Disposition: 10:14
[2024-04-20 09:24] VITALS: BP 119/66; PULSE 86; RESP 16; TEMP 36.4; O2SAT 94
== END 2024-04-20 10:16 | disposition home or self-care (01) ==
PROVIDERS: Emergency Provider Nurse Practitioner Family; PCP Internal Medicine
DX: J18.9 Pneumonia, unspecified organism (principal); E11.22 Type 2 diabetes mellitus with diabetic chronic kidney disease; I12.9 Hypertensive chronic kidney disease with stage 1 through stage 4 chronic kidney disease, or unspecified chronic kidney disease; N18.2 Chronic kidney disease, stage 2 (mild)
CPT/HCPCS: 99213; G0463

== ENCOUNTER 2024-09-05 10:11 | Outpatient (CLI) | payer MEDICARE, OTHER, SELFPAY ==
--- NOTE | ~2024-09-05 | XR_ITS ---
AP and oblique views of the bilateral SI joints Clinical history back pain FINDINGS: Bilateral SI joints are intact. Possible minimal degenerative change, but no evidence for i nflammatory arthropathy. No erosive change or sclerosis. Visualized hip joints are intact. Soft tissu es are unremarkable. No fracture seen. IMPRESSION: Minimal degenerative change of the SI joints. Reviewed, dictated and finalized at location M.
--- NOTE | ~2024-09-05 | XR_ITS ---
Cervical Spine: AP, lateral, open-mouth views Clinical History: Pain Findings: The normal lordotic curve is maintained. No fracture or subluxation seen. The intervertebra l disc spaces demonstrate minimal degenerative changes. Extensive anterior flowing osteophytes are co mpatible with DISH. There is mild facet arthropathy. Pre-vertebral soft tissues are unremarkable. Impression: Mild degenerative spondylosis. DISH. Reviewed, dictated and finalized at location M. Impression: Mild degenerative spondylosis. DISH.
--- NOTE | ~2024-09-05 | XR_ITS ---
Thoracic spine: Clinical Indication: Back pain AP and lateral views were performed. No fracture is seen. There is normal alignment of the vertebrae. There is multilevel mild to moderat e degenerative disc narrowing. There is extensive DISH of the mid to lower thoracic spine. Paraverteb ral soft tissues appear normal. Impression: Multilevel mild to moderate degenerative disc narrowing. Extensive DISH of the mid to lower thoracic spine. Reviewed, dictated and finalized at location . Impression: Multilevel mild to moderate degenerative disc narrowing. Extensive DISH of the mid to lower thoracic spine.
--- NOTE | ~2024-09-05 | XR_ITS ---
Lumbosacral Spine: AP and lateral views Clinical History: Pain Findings: The normal lordotic curve is maintained. No fracture seen. There is 4 mm anterolisthesis of L3 over L4. There is severe facet arthropathy throughout the lumbar spine. There are mild degenerati ve disc changes. The sacroiliac joints are normally outlined. Impression: Diffuse, severe facet arthropathy. Mild degenerative disc changes. 4 mm anterolisthesis of L3 over L4. Reviewed, dictated and finalized at location . Impression: Diffuse, severe facet arthropathy. Mild degenerative disc changes. 4 mm anterolisthesis of L3 over L4.
== END 2024-09-05 10:12 | disposition home or self-care (01) ==
PROVIDERS: PCP Internal Medicine
DX: M48.12 Ankylosing hyperostosis [Forestier], cervical region (principal); M48.14 Ankylosing hyperostosis [Forestier], thoracic region; M47.896 Other spondylosis, lumbar region; M43.16 Spondylolisthesis, lumbar region; M51.369 Other intervertebral disc degeneration, lumbar region without mention of lumbar back pain or lower extremity pain; M47.892 Other spondylosis, cervical region; M51.34 Other intervertebral disc degeneration, thoracic region; M46.1 Sacroiliitis, not elsewhere classified
CPT/HCPCS: 72040; 72070; 72100; 72202